=== PATIENT | female | born 1960 | race African-American/Black ===

== ENCOUNTER 2023-06-04 13:43 | Emergency (ER) | payer OTHER, MEDICAID ==
[~2023-06-04] VITALS: Ht 165.1 cm; Wt 98.2 kg
[2023-06-04] MEDS ORDERED: ONDANSETRON HCL 4 MG/2 ML VIAL IV ONE (14:00)
[2023-06-04] MEDS ORDERED: SODIUM CHLORIDE 0.9% 1,000 ML IV ONE (14:00)
[2023-06-04] MEDS ORDERED: hydrALAZINE HCL 20 MG/ML VL IV ONE (14:30)
[2023-06-04 14:34] LABS: Basophils # (auto) 0 10 ^3/uL (0-0.2); Basophils % (auto) 0.8 % (0.0-2.0); Eosinophils # (auto) 0 10 ^3/uL (0-0.8); Eosinophils % (auto) 0.1 % (0.0-7.0); Hematocrit 40.9 % (36.0-46.0); Hemoglobin 13.3 g/dL (12.2-16.2); Lymphocytes # (auto) 0.7 10 ^3/uL (0.4-5.4); Lymphocytes % (auto) 12.8 % (10.0-50.0); Mean Corpuscular Hemoglobin 27.4 pg (28.0-32.0); Mean Corpuscular Hgb Conc. 32.6 g/dL (32.0-36.0); Monocytes # (auto) 0.2 10 ^3/uL (0-1.3); Monocytes % (auto) 4.5 % (0.0-12.0); Neutrophils # (auto) 4.3 10 ^3/uL (1.6-8.6); Neutrophils % (auto) 81.8 % (37.0-80.0); Nucleated Red Blood Cells % 0.2 %; Red Blood Cells 4.87 10^6/uL (4.0-5.20); Red Cell Distribution Width 13.6 % (11.8-14.3); White Blood Cell 5.3 10^3/uL (4.4-10.8)
[2023-06-04 14:55] LABS: Alanine Aminotransferase 24 U/L (7-40); Albumin 4.5 g/dL (3.2-4.8); Alkaline Phosphatase 103 U/L (46-116); Anion Gap 9 (5-15); Aspartate Aminotransferase 13 U/L (13-40); BUN/Creatinine Ratio 16.5 (10.0-20.0); Bilirubin, Total 0.6 mg/dL (0.2-1.0); Blood Urea Nitrogen 15 mg/dL (9-23); Calcium 8.9 mg/dL (8.7-10.4); Carbon Dioxide 26 mmol/L (20-30); Chloride 105 mmol/L (98-107); Glucose 166 mg/dL (74-106); Lipase 33 U/L (12-53); Potassium 3.7 mmol/L (3.5-5.1); Sodium 140 mmol/L (136-145); Total Protein 7.3 g/dL (5.7-8.2)
[2023-06-04 15:16] LABS: Lactic Acid w/Reflex 3.1 mmol/L (0.4-2.0)
[2023-06-04] MEDS ORDERED: IOHEXOL 300 MG/ML 100ML BOTTLE IJ ONE (15:19)
[2023-06-04 15:20] VITALS: TEMP 97.8
[2023-06-04] MEDS ORDERED: LABETALOL HCL 5 MG/ML 4ML SYRINGE IV ONE ×2 (19:45→22:15)
[2023-06-04] MEDS ORDERED: HYDROcodone-ACET 5/325MG TAB PO ONE (19:45)
[2023-06-04] MEDS ORDERED: ZOFR4T PO (19:50)
[2023-06-04 20:51] VITALS: BP 158/78; PULSE 60; RESP 18; O2SAT 100
[2023-06-04 21:38] LABS: Urine Bacteria NONE SEEN /hpf (None Seen); Urine Blood TRACE /uL (Negative); Urine Clarity Clear (Clear); Urine Color Yellow (Yellow); Urine Protein, UAD 1+ (Negative); Urine Urobilinogen Normal (Negative); Urine WBC 1 /hpf (0 - 5); Urine pH 6.5 (5.0-8.0)
[2023-06-04 21:51] LABS: Urine Specific Gravity > 1.050 (1.001-1.035)
== END 2023-06-04 22:58 | disposition home or self-care (01) ==
LOC: EDBD 13:43 → ER 13:43
DX: R10.9 Unspecified abdominal pain (principal); R11.2 Nausea with vomiting, unspecified; I10 Essential (primary) hypertension; E11.9 Type 2 diabetes mellitus without complications; J45.909 Unspecified asthma, uncomplicated; Z98.890 Other specified postprocedural states; Z88.8 Allergy status to other drugs, medicaments and biological substances; Z79.899 Other long term (current) drug therapy
CPT/HCPCS: 36415; 74177; 80053; 81001; 82962; 83605; 83690; 84484; 85025; 96374; 96375; 96376; 99285; J0360; J2405; J3490; Q9967

== ENCOUNTER 2024-10-25 10:40 | Inpatient (IN) | payer OTHER, MEDICAID ==
[~2024-10-25] VITALS: Ht 165.1 cm; Wt 97.2 kg
[~2024-10-25 10:40] MED LIST: ZOFR4T PO
--- NOTE | 2024-10-25 10:52 | ED.PDOC ---
History of Present Illness HPI Comments 63-year-old female who comes in with chief complaint of rapid heart rate consistent with SVT. The patient was at home sitting down in her living room and when the paramedics arrived at her home the patient had a rapid heart rate at around 155. The patient states that she developed the symptoms approximately 15 minutes prior to calling the paramedics. The patient was complaining of some mild shortness for breath. At that time she did state that she has had history of this in the past but was never diagnosed. The paramedics then gave the patient adenosine 6 mg IV push and the heart rate came down to 105. Initially the patient was somewhat hypertensive but after the medication, the patient became more normotensive. The patient was also given Zofran 4 mg for the nausea that she was experiencing. Chief Complaint: Palpitations Time Seen by MD: 10:41 Primary Care Provider: REINALDO Reviewed Notes: Nurses Notes, Tower Foreman Notes, Medications, Allergies (Allergies to penicillin) Allergies: Coded Allergies: Penicillins (Verified Allergy, Unknown, 06/04/23) Home Meds Active Scripts Ondansetron Odt 4MG Tab (ZOFRAN PO) 4 Mg Tb, 4 MG PO Q8HPRN PRN for 3 Days, #9 TAB ODT TAB-DISSOLVE IN MOUTH, THEN SWALLOW Prov:CHARLIE RANDOLPH Lise MILLER 06/04/23 Information Source: Patient, Emergency Med Personnel Mode of Arrival: EMS Severity: Moderate Timing: Minutes Duration: Since onset Prehospital treatment: Industrial Chemist, IVF, Other (4 mg of Zofran. 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 Pertinent HOTEL MAINTENANCE WORKER History Family History Family History: Family hx of DM, Family hx of Cancer, Family hx of heart nelly Social History Smoker: Non-Smoker Alcohol: Denies ETOH Use Drugs: Denies Drug Use Lives In: Home Constitutional: denies: chills, diaphoresis, fatigue, fever, malaise, sweats, weakness, others EENTM: denies: blurred vision, double vision, ear bleeding, ear discharge, ear drainage, ear pain, ear ringing, eye pain, eye redness, hearing loss, mouth pain, mouth swelling, nasal discharge, nose bleeding, nose congestion, nose pain, photophobia, tearing, throat pain, throat swelling, voice changes, others Respiratory: reports: shortness of breath; denies: cough, hemoptysis, orthopnea, SOB at rest, SOB with excertion, stridor, wheezing, others Cardiovascular: reports: palpitations; denies: chest pain, dizzy spells, diaphoresis, Dyspnea on exertion, edema, irregular heart beat, left arm pain, lightheadedness, PND, syncope, others Gastrointestinal: reports: nausea; denies: abdomen distended, abdominal pain, blood streaked bowels, constipated, diarrhea, dysphagia, difficulty swallowing, hematemesis, melena, poor appetite, poor fluid intake, rectal bleeding, rectal pain, vomiting, others Genitourinary: denies: abnormal vagina bleeding, burning, dyspareunia, dysuria, flank pain, frequency, hematuria, incontinence, pain, , vagina dischar ge, urgency, others Neurological: denies: dizziness, fainting, headache, left sided numbness, left sided weakness, numbness, paresthesia, pre-existing deficit, right sided numbness, right sided weakness, seizure, speech problems, tingling, tremors, weakness, others Musculoskeletal: denies: back pain, gout, joint pain, joint swelling, muscle pain, muscle stiffness, neck pain, others Integumetry: denies: bruises, change in color, change in hair/nails, dryness, laceration, lesions, lumps, rash, wounds, others Allergic/Immunocompromised: denies: Difficulty Healing, Frequent Infections, Hives, Itching, others Hematologic/Lymphatic: denies: anemia, blood clots, easy bleeding, easy bruising, swollen glands, others Endocrine: denies: excessive hunger, excessive sweating, excessive thirst, excessive urination, flushing, intolerance to cold, intolerance to heat, unexplained weight gain, unexplained weight loss, others Psychiatric: denies: anxiety, bipolar disorder, depression, hopeless, panic disorder, schizophrenia, sleepless, suicidal, others Physical Exam General Appearance: Mild Distress HEENT: Normal ENT Inspection, Pharynx Normal, TMs Normal Neck: Full Range of Motion, Non-Tender, Normal, Normal Inspection Respiratory: Chest Non-Tender, Lungs Clear, No Accessory Muscle Use, No Respiratory Distress, Normal Breath Sounds Cardiovascular: No Edema, No JVD, No Murmur, No Gallop, Normal Peripheral Pulses, Regular Rate/Rhythm Breast Exam: Deferred Gastrointestinal: No Organomegaly, Non Tender, No Pulsatile Mass, Normal Bowel Sounds, Soft Genitalia: Deferred Pelvic: Deferred Rectal: Deferred Extremities: No calf tenderness, Normal capillary refill, Normal inspection, Normal range of motion, Non-tender, No pedal edema Musculoskeletal : Apperance: Normal Neurologic: Alert, trans router II-XII nml as Tested, No Motor Deficits, Normal Affect, Normal Mood, No Sensory Deficits Cerebellar Function: Normal Reflexes: Normal Skin: Dry, Normal Color, Warm Lymphatic: No Adenopathy Was a procedure done? Was a procedure done?: No EKG EKG : Pulse Rate (adult): 99 Girard: Normal Cardiac Rhythm: NSR ST: Nonsp Differential Dx Considerations may include: SVT, V-tach, VFib X-Ray, Labs, Meds, VS Vital Signs Date Time Temp Pulse Resp B/P (MAP) Pulse Ox O2 Delivery O2 Flow Rate FiO2 10/25/24 12:29 94 20 182/89 10/25/24 12:06 88 10/25/24 11:00 98.4 94 22 192/96 (128) 97 98.4 10/25/24 11:00 Room Air* 0 21 10/25/24 10:59 99 10/25/24 10:52 99 10/25/24 10:43 99.0 101 16 192/142 (159) 100 99.0 Lab Test 10/25/24 11:21 10/25/24 11:18 Range/Units Urine Color Light-yellow Yellow Urine Clarity Clear Clear Urine pH 7.0 5.0-9.0 Urine Specific [place] 1.007 1.001-1.035 Urine Protein 1+ H Negative Urine Ketones Negative Negative Urine Blood Negative Negative /uL Urine Nitrite Negative Negative Urine Bilirubin Negative Negative Urine Urobilinogen Normal Negative mg/dL Urine Leukocyte Esterase Negative Negative /uL Urine RBC 2 0 - 4 /hpf Urine Microscopic WBC 1 0-5 /HPF Urine Squamous Epithelial Cells Few <5 /hpf Urine Bacteria None seen None Seen /hpf Urine Glucose 1+ H Normal mg/dL White Blood Count 4.4 4.4-10.8 10^3/uL Red Blood Count 4.92 4.0-5.20 10^6/uL Hemoglobin 13.3 12.2-16.2 g/dL Hematocrit 41.1 36.0-46.0 % Mean Corpuscular Volume 83.4 80.0-100.0 fL Mean Corpuscular Hemoglobin 27.1 L 28.0-32.0 pg Mean Corpuscular Hemoglobin Concent 32.5 32.0-36.0 g/dL Red Cell Distribution Width 14.1 11.8-14.3 % Platelet Count 284 140-450 10^3/uL Mean Platelet Volume 8.3 6.9-10.8 fL Neutrophils (%) (Auto) 65.9 37.0-80.0 % Lymphocytes (%) (Auto) 24.5 10.0-50.0 % Monocytes (%) (Auto) 7.8 0.0-12.0 % Eosinophils (%) (Auto) 1.3 0.0-7.0 % Basophils (%) (Auto) 0.5 0.0-2.0 % Neutrophils # (Auto) 2.9 1.6-8.6 10 ^3/uL Lymphocytes # (Auto) 1.1 0.4-5.4 10 ^3/uL Monocytes # (Auto) 0.3 0-1.3 10 ^3/uL Eosinophils # (Auto) 0.1 0-0.8 10 ^3/uL Basophils # (Auto) 0 0-0.2 10 ^3/uL Nucleated Red Blood Cells 0.1 % Sodium Level 140 136-145 mmol/L Potassium Level 3.4 L 3.5-5.1 mmol/L Chloride Level 107 98-107 mmol/L Carbon Dioxide Level 26 20-31 mmol/L Anion Gap 7 5-15 Blood Urea Nitrogen 11 9-23 mg/dL Creatinine 0.91 0.550-1.02 mg/dL Glomerular Filtration Rate Calc 72 >90 mL/min BUN/Creatinine Ratio 12.1 10.0-20.0 Serum Glucose 166 H 74-106 mg/dL Calcium Level 9.4 8.7-10.4 mg/dL Magnesium Level 1.9 1.6-2.6 mg/dL Troponin I High Sensitivity 13 </=34 ng/L Current Medications Medications (Trade) Dose Ordered Sig/Jayla Route Start Time Stop Time Status Last Admin Morphine Sulfate 4 mg ONCE ONCE IV 10/25/24 12:30 10/25/24 12:31 DC 10/25/24 12:29 Ondansetron HCl (Zofran) 4 mg ONCE ONCE IV 10/25/24 12:30 10/25/24 12:31 DC 10/25/24 12:27 CHEST RADIOGRAPH IMPRESSION: No evidence of acute cardiopulmonary disease. IV Hep-Lock was established The patient was placed on a delivery manager and pulse oximeter. The patient has remained in normal sinus rhythm here in the emergency department's The patient was having some headache so was given morphine 4 mg IV push The patient was also given Zofran 4 mg IV push The patient's troponin level is negative At this time, the patient's CBC, chemistry panel and magnesium are within normal limits At this time the patient is discharged and will follow up with the primary care doctor The patient will return to the emergency department's the condition worsens The patient did share that they are considering doing an ablation on her at some point Images Reviewed?: Images reviewed and evaluated by me Time of 1ST Reevaluation: 10:59 Reevaluation 1ST: Improved Patient Education/Counseling: Diagnosis, Treatment, Prognosis, Need For Follow Up Family Education/Counseling: No Family Present Departure 1 Departure Time of Disposition: 12:33 Impression: Primary Impression: SVT (supraventricular tachycardia) Disposition: 01 HOME / SELF CARE / HOMELESS Condition: Fair Discharged With: Self Critical Care Note Critical Care Time?: No Stability Stability form required: No Heart Score Heart Score: Heart Score Response (Comments) Value History N/A 0 EKG N/A 0 Age N/A 0 Risk Factors N/A 0 Troponin N/A 0 Total 0 I personally scribed for GWEN CAPONE MD ([email or web address]) on 10/25/24 at 12:23. Electronically submitted by Gage Solano ([email or web address]). GWEN CAPONE MD Oct 25, 2024 10:52
--- NOTE | 2024-10-25 11:43 | ECG ---
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
[2024-10-25 11:46] LABS: Basophils # (auto) 0 10 ^3/uL (0-0.2); Basophils % (auto) 0.5 % (0.0-2.0); Eosinophils # (auto) 0.1 10 ^3/uL (0-0.8); Eosinophils % (auto) 1.3 % (0.0-7.0); Hematocrit 41.1 % (36.0-46.0); Hemoglobin 13.3 g/dL (12.2-16.2); Lymphocytes # (auto) 1.1 10 ^3/uL (0.4-5.4); Lymphocytes % (auto) 24.5 % (10.0-50.0); Mean Corpuscular Hemoglobin 27.1 pg (28.0-32.0); Mean Corpuscular Hgb Conc. 32.5 g/dL (32.0-36.0); Mean Corpuscular Volume 83.4 fL (80.0-100.0); Monocytes # (auto) 0.3 10 ^3/uL (0-1.3); Monocytes % (auto) 7.8 % (0.0-12.0); Neutrophils # (auto) 2.9 10 ^3/uL (1.6-8.6); Neutrophils % (auto) 65.9 % (37.0-80.0); Nucleated Red Blood Cells % 0.1 %; Platelet Count (auto) 284 10^3/uL (140-450); Red Blood Cells 4.92 10^6/uL (4.0-5.20); Red Cell Distribution Width 14.1 % (11.8-14.3); White Blood Cell 4.4 10^3/uL (4.4-10.8)
[2024-10-25 11:55] LABS: Sodium 140 mmol/L (136-145)
[2024-10-25 11:56] LABS: Anion Gap 7 (5-15); Calcium 9.4 mg/dL (8.7-10.4); Carbon Dioxide 26 mmol/L (20-31)
[2024-10-25 12:01] LABS: BUN/Creatinine Ratio 12.1 (10.0-20.0); Blood Urea Nitrogen 11 mg/dL (9-23)
[2024-10-25 12:02] LABS: Magnesium 1.9 mg/dL (1.6-2.6)
[2024-10-25 12:08] LABS: Chloride 107 mmol/L (98-107); Glucose 166 mg/dL (74-106); Potassium 3.4 mmol/L (3.5-5.1)
--- NOTE | 2024-10-25 12:08 | DVH ---
CHEST RADIOGRAPH Indication: Palpitations Technique: Single frontal view of the chest was obtained COMPARISON: None FINDINGS: Lines and Tubes: None Lungs: Clear Pleura: No effusion. No pneumothorax. Cardiomediastinal contours: Unremarkable. Mild elevation of the left hemidiaphragm. Bones: Unremarkable IMPRESSION: No evidence of acute cardiopulmonary disease.
--- NOTE | 2024-10-25 12:08 | ECG ---
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
[2024-10-25 12:18] LABS: Urine Bacteria None Seen /hpf (None Seen)
[2024-10-25] MEDS: ONDANSETRON HCL 4 MG/2 ML VIAL IV ONE (12:27)
[2024-10-25] MEDS: MORPHINE SULFATE 4 MG/ML SYR/VIAL IV ONE (12:29)
[2024-10-25 12:30] LABS: Urine Blood Negative /uL (Negative); Urine Protein, UAD 1+ (Negative); Urine Specific Gravity 1.007 (1.001-1.035); Urine Squamous Epithelial Cell FEW /hpf (<5); Urine Urobilinogen Normal (Negative); Urine WBC 1 /HPF (0-5)
[2024-10-25 12:31] LABS: Urine Clarity Clear (Clear); Urine Color Light-Yellow (Yellow)
[2024-10-25] MEDS: HYDROcodone-ACET 5/325MG TAB PO ONE (15:00)
[2024-10-25] MEDS: cloNIDine HCL 0.1 MG TAB PO ONE (15:06)
[2024-10-25] MEDS ORDERED: NITROGLYCERIN 0.4 MG SL TAB SL PRN (19:00)
[2024-10-25] MEDS ORDERED: LORazepam 0.5 MG TAB PO PRN (19:00)
[2024-10-25] MEDS: METOPROLOL TARTRATE 1MG/1ML-5ML VIAL IV ONE (19:08)
--- NOTE | 2024-10-25 19:24 | DVHHP2 ---
History of Present Illness Reason for Visit: chest pain heart rate History of Present Illness 63-year-old female [place] patient came in for evaluation of chest pain and suspected SVT initially patient was evaluated in the ED after being brought in by the paramedics with high heart rate patient was started and treated in the ED with adenosine at that point in time patient's blood pressure and heart rate became more normotensive and better controlled however continued to have chest pain and nausea and vomiting was recommended for admission to inpatient telemetry Cardiovascular: HTN Endocrine: Diabetes Past Surgical History: Hysterectomy Family History: Cancer, DM, Hypertension Review of Systems Review of Systems ROS: Constitutional: denies: chills, diaphoresis, fatigue, fever, malaise, sweats, weakness, others EENTM: denies: blurred vision, double vision, ear bleeding, ear discharge, ear drainage, ear pain, ear ringing, eye pain, eye redness, hearing loss, mouth pain, mouth swelling, nasal discharge, nose bleeding, nose congestion, nose pain, photophobia, tearing, throat pain, throat swelling, voice changes, others Respiratory: reports: shortness of breath; denies: cough, hemoptysis, orthopnea, SOB at rest, SOB with excertion, stridor, wheezing, others Cardiovascular: reports: palpitations; denies: chest pain, dizzy spells, diaphoresis, Dyspnea on exertion, edema, irregular heart beat, left arm pain, lightheadedness, PND, syncope, others Gastrointestinal: reports: nausea; denies: abdomen distended, abdominal pain, blood streaked bowels, constipated, diarrhea, dysphagia, difficulty swallowing, hematemesis, melena, poor appetite, poor fluid intake, rectal bleeding, rectal pain, vomiting, others Genitourinary: denies: abnormal vagina bleeding, burning, dyspareunia, dysuria, flank pain, frequency, hematuria, incontinence, pain, , vagina discharge, urgency, others Neurological: denies: dizziness, fainting, headache, left sided numbness, left sided weakness, numbness, paresthesia, pre-existing deficit, right sided numbness, right sided weakness, seizure, speech problems, tingling, tremors, weakness, others Musculoskeletal: denies: back pain, gout, joint pain, joint swelling, muscle pain, muscle stiffness, neck pain, others Integumetry: denies: bruises, change in color, change in hair/nails, dryness, laceration, lesions, lumps, rash, wounds, others Allergic/Immunocompromised: denies: Difficulty Healing, Frequent Infections, Hives, Itching, others Hematologic/Lymphatic: denies: anemia, blood clots, easy bleeding, easy bruising, swollen glands, others Endocrine: denies: excessive hunger, excessive sweating, excessive thirst, excessive urination, flushing, intolerance to cold, intolerance to heat, unexplained weight gain, unexplained weight loss, others Psychiatric: denies: anxiety, bipolar disorder, depression, hopeless, panic disorder, schizophrenia, sleepless, suicidal, others Allergies: Coded Allergies: Penicillins (Verified Allergy, Unknown, 06/04/23) Medications Current Medications Medications Dose Ordered Sig/Jayla Route Start Time Stop Time Status Last Admin Dose Admin Aspirin 81 mg DAILY PO 10/26/24 10:00 Carvedilol 6.25 mg Q12HR PO 10/25/24 22:00 Losartan Potassium 25 mg DAILY PO 10/26/24 10:00 Acetaminophen 650 mg Q6HP PRN PO 10/25/24 19:00 Lorazepam 0.5 mg Q6HP PRN PO 10/25/24 19:00 Docusate Sodium 100 mg DAILY PO 10/26/24 10:00 Nitroglycerin 0.4 mg Q5MINP PRN SL 10/25/24 19:00 Ondansetron HCl 4 mg Q4HP PRN IV 10/25/24 19:00 Diagnostic Test (Pha) 1 strip ACHS 10/25/24 22:00 UNV Insulin Human Regular ACHS SC 10/25/24 22:00 UNV Dextrose 50 ml UD PRN IV 10/25/24 19:30 UNV Clonidine HCl 0.1 mg Q6HP PRN PO 10/25/24 19:30 UNV Exam Vital Signs Vital Signs Date Time Temp Pulse Resp B/P (MAP) Pulse Ox O2 Delivery O2 Flow Rate FiO2 10/25/24 19:08 74 170/85 10/25/24 18:00 21 95 10/25/24 11:00 98.4 98.4 10/25/24 11:00 Room Air* 0 21 Exam PE: General Appearance: Mild Distress HEENT: Normal ENT Inspection, Pharynx Normal, TMs Normal Neck: Full Range of Motion, Non-Tender, Normal, Normal Inspection Respiratory: Chest Non-Tender, Lungs Clear, No Accessory Muscle Use, No Respiratory Distress, Normal Breath Sounds Cardiovascular: No Edema, No JVD, No Murmur, No Gallop, Normal Peripheral Pulses, Regular Rate/Rhythm Breast Exam: Deferred Gastrointestinal: No Organomegaly, Non Tender, No Pulsatile Mass, Normal Bowel Sounds, Soft Genitalia: Deferred Pelvic: Deferred Rectal: Deferred Extremities: No calf tenderness, Normal capillary refill, Normal inspection, Normal range of motion, Non-tender, No pedal edema Musculoskeletal : Apperance: Normal Neurologic: Alert, apprentice lineman third step II-XII nml as Tested, No Motor Deficits, Normal Affect, Normal Mood, No Sensory Deficits Cerebellar Function: Normal Reflexes: Normal Skin: Dry, Normal Color, Warm Lymphatic: No Adenopathy Labs/Xrays Labs Test 10/25/24 19:12 10/25/24 11:21 10/25/24 11:18 Range/Units Urine Color Light-yellow Yellow Urine Clarity Clear Clear Urine pH 7.0 5.0-9.0 Urine Specific [place] 1.007 1.001-1.035 Urine Protein 1+ H Negative Urine Ketones Negative Negative Urine Blood Negative Negative /uL Urine Nitrite Negative Negative Urine Bilirubin Negative Negative Urine Urobilinogen Normal Negative mg/dL Urine Leukocyte Esterase Negative Negative /uL Urine RBC 2 0 - 4 /hpf Urine Microscopic WBC 1 0-5 /HPF Urine Squamous Epithelial Cells Few <5 /hpf Urine Bacteria None seen None Seen /hpf Urine Glucose 1+ H Normal mg/dL White Blood Count 4.4 4.4-10.8 10^3/uL Red Blood Count 4.92 4.0-5.20 10^6/uL Hemoglobin 13.3 12.2-16.2 g/dL Hematocrit 41.1 36.0-46.0 % Mean Corpuscular Volume 83.4 80.0-100.0 fL Mean Corpuscular Hemoglobin 27.1 L 28.0-32.0 pg Mean Corpuscular Hemoglobin Concent 32.5 32.0-36.0 g/dL Red Cell Distribution Width 14.1 11.8-14.3 % Platelet Count 284 140-450 10^3/uL Mean Platelet Volume 8.3 6.9-10.8 fL Neutrophils (%) (Auto) 65.9 37.0-80.0 % Lymphocytes (%) (Auto) 24.5 10.0-50.0 % Monocytes (%) (Auto) 7.8 0.0-12.0 % Eosinophils (%) (Auto) 1.3 0.0-7.0 % Basophils (%) (Auto) 0.5 0.0-2.0 % Neutrophils # (Auto) 2.9 1.6-8.6 10 ^3/uL Lymphocytes # (Auto) 1.1 0.4-5.4 10 ^3/uL Monocytes # (Auto) 0.3 0-1.3 10 ^3/uL Eosinophils # (Auto) 0.1 0-0.8 10 ^3/uL Basophils # (Auto) 0 0-0.2 10 ^3/uL Nucleated Red Blood Cells 0.1 % Sodium Level 140 136-145 mmol/L Potassium Level 3.4 L 3.5-5.1 mmol/L Chloride Level 107 98-107 mmol/L Carbon Dioxide Level 26 20-31 mmol/L Anion Gap 7 5-15 Blood Urea Nitrogen 11 9-23 mg/dL Creatinine 0.91 0.550-1.02 mg/dL Glomerular Filtration Rate Calc 72 >90 mL/min BUN/Creatinine Ratio 12.1 10.0-20.0 Serum Glucose 166 H 74-106 mg/dL Calcium Level 9.4 8.7-10.4 mg/dL Magnesium Level 1.9 1.6-2.6 mg/dL Assessment/Plan Assessment/Plan admit to telemetry SVT with stated chest pain Chest pain protocol Monitor on telemetry floor Initial troponins negative Borderline potassium Rest of the labs unremarkable History of diabetes type 2 Mildly elevated glucose Maintain and follow a glucose controlled diet Insulin sliding scale while inpatient history of hypertension Patient placed on clonidine 0.2 mg while in the ED We will maintain 0.1 prn medication for now to avoid rebound Plan discussed with: Patient My Orders Orders - AMARILYS QURESHI MD Procedure Category Date Status Time Admit ADMIT 10/25/24 Transmitted 18:56 Code Status CODE 10/25/24 Transmitted 18:56 Vital Signs JULIAN 10/25/24 In Process 18:56 Rn Forensic JULIAN 10/25/24 In Process 18:56 Cardiac DIET 10/26/24 Transmitted Diet-2gna,Lofat,Lochol Breakfast Aspirin Tablet PHA 10/26/24 In Process 10:00 Carvedilol Tablet PHA 10/25/24 In Process (Coreg Tablet) 22:00 Losartan Tablet PHA 10/26/24 In Process (Cozaar Tablet) 10:00 Acetaminophen Tablet PHA 10/25/24 In Process (Tylenol Tablet) 19:00 Lorazepam Tablet PHA 10/25/24 In Process (Ativan Tablet) 19:00 Docusate Sodium PHA 10/26/24 In Process Capsule (Colace 10:00 Complete Blood Count LAB 10/26/24 Verified 04:00 Basic Metabolic Panel LAB 10/26/24 Verified 04:00 Magnesium LAB 10/26/24 Verified 04:00 Nitroglycerin PHA 10/25/24 In Process Sublingual (Ntrostat 19:00 Ondansetron Hcl PHA 10/25/24 In Process (Zofran) 19:00 Electrocardigram EKG 10/25/24 Logged 18:56 Troponin-I Hs LAB 10/25/24 In Process 18:56 Cardiac JULIAN 10/25/24 In Process Rehabilitation - Outpa Notify Md Of Changes [facility] 10/25/24 In Process From Base 18:56 Race Car Driver [address] [facility] 10/25/24 In Process 24 Hours 18:[address] [facility] 10/25/24 In Process Protocol 18:56 Rhythm Strips Once [facility] 10/25/24 In Process Every Shift 18:56 Oxygen By Nasal RT 10/25/24 Transmitted Cannula 18:56 Troponin-I Hs LAB 10/25/24 Logged 19:56 Troponin-I Hs LAB 10/25/24 Logged 21:56 Glucose Blood PHA 10/25/24 Logged (Accu-Chek Comfort 22:00 Insulin R (Human) PHA 10/25/24 Logged (Insulin R) 22:00 Dextrose 50% Syringe PHA 10/25/24 Logged 19:30 Clonidine Hcl Tablet PHA 10/25/24 Logged (Catapres Tablet) 19:30 Date of Service: Oct 25, 2024 Billing Provider: AMARILYS QURESHI MD Common Visit Codes: [id number] INP/OBS CARE (HIGH) AMARILYS QURESHI MD Oct 25, 2024 19:24
[2024-10-25] MEDS ORDERED: DEXTROSE (50%) 50ML SYRG IV PRN (19:30)
[2024-10-25] MEDS ORDERED: cloNIDine HCL 0.1 MG TAB PO PRN (19:30)
[2024-10-25 19:44] VITALS: PULSE 60; RESP 12; O2SAT 96
[2024-10-25] MEDS: cloNIDine HCL 0.1 MG TAB PO PRN (20:38)
[2024-10-25 21:36] VITALS: BP 175/80; PULSE 60; RESP 20; TEMP 97.8; O2SAT 95
[2024-10-25 21:55] VITALS: BP 175/80; PULSE 60; RESP 20; TEMP 97.8; O2SAT 95
[2024-10-25] MEDS: InsuLIN REG 1unit/0.01ml Soln (100units/ml) SC SCH (22:45)
[2024-10-25] MEDS: ACCU-CHEK COMFORT CURVE STRIP VI SCH (22:45)
[2024-10-26] VITALS (8 sets, daily range): BP systolic 108–150; BP diastolic 70–84; PULSE 54–76; RESP 16–18; TEMP 96.5–98.4; O2SAT 92–98
[2024-10-26] MEDS: CARVEDILOL 3.125 MG TAB PO SCH ×2 (00:32→21:40)
[2024-10-26] MEDS: ONDANSETRON HCL 4 MG/2 ML VIAL IV PRN (00:36)
[2024-10-26 06:17] LABS: Basophils # (auto) 0 10 ^3/uL (0-0.2); Basophils % (auto) 0.5 % (0.0-2.0); Eosinophils # (auto) 0 10 ^3/uL (0-0.8); Hematocrit 39.1 % (36.0-46.0); Hemoglobin 12.9 g/dL (12.2-16.2); Lymphocytes # (auto) 1.1 10 ^3/uL (0.4-5.4); Lymphocytes % (auto) 23.8 % (10.0-50.0); Mean Corpuscular Hemoglobin 27.2 pg (28.0-32.0); Mean Corpuscular Hgb Conc. 32.9 g/dL (32.0-36.0); Mean Corpuscular Volume 82.4 fL (80.0-100.0); Monocytes # (auto) 0.5 10 ^3/uL (0-1.3); Monocytes % (auto) 10.5 % (0.0-12.0); Neutrophils % (auto) 64.2 % (37.0-80.0); Platelet Count (auto) 302 10^3/uL (140-450); Red Blood Cells 4.74 10^6/uL (4.0-5.20); Red Cell Distribution Width 13.9 % (11.8-14.3); White Blood Cell 4.7 10^3/uL (4.4-10.8)
[2024-10-26 06:30] LABS: Anion Gap 9 (5-15); Calcium 9.1 mg/dL (8.7-10.4); Carbon Dioxide 27 mmol/L (20-31); Chloride 105 mmol/L (98-107); Sodium 141 mmol/L (136-145)
[2024-10-26 06:33] LABS: Potassium 3.4 mmol/L (3.5-5.1)
[2024-10-26 06:36] LABS: BUN/Creatinine Ratio 15.2 (10.0-20.0); Blood Urea Nitrogen 15 mg/dL (9-23)
[2024-10-26 06:37] LABS: Magnesium 2.1 mg/dL (1.6-2.6)
[2024-10-26 06:45] LABS: Glucose 138 mg/dL (74-106)
--- NOTE | 2024-10-26 10:44 | DVHPN2 ---
Progress Note Date Seen: Oct 26, 2024 Medical Necessity Reason Pt with a Central, PICC or Fol: No Subjective Patient reports: No new complaints Review of Systems: HEENT:Normal, CVS:Normal, RESPIRATORY:Normal, GI:Normal, :Normal, MSK:Normal, NEURO:Normal Objective vital signs Vital Sign Date Time Temp Pulse Resp B/P (MAP) Pulse Ox O2 Delivery O2 Flow Rate FiO2 10/26/24 09:07 98.3 55 16 108/73 (85) 98 98.3 10/25/24 21:55 Room Air* 0 21 Total Intake and Output 10/25/24 10/25/24 10/26/24 15:00 23:00 07:00 Intake Total 400 ml Output Total 500 ml 100 ml Balance -500 ml 300 ml medications Current Medications Medications Dose Ordered Sig/Jayla Route Start Time Stop Time Status Last Admin Dose Admin Aspirin 81 mg DAILY PO 10/26/24 10:00 Carvedilol 6.25 mg Q12HR PO 10/25/24 22:00 Losartan Potassium 25 mg DAILY PO 10/26/24 10:00 Acetaminophen 650 mg Q6HP PRN PO 10/25/24 19:00 Lorazepam 0.5 mg Q6HP PRN PO 10/25/24 19:00 Docusate Sodium 100 mg DAILY PO 10/26/24 10:00 Nitroglycerin 0.4 mg Q5MINP PRN SL 10/25/24 19:00 Ondansetron HCl 4 mg Q4HP PRN IV 10/25/24 19:00 10/26/24 00:36 4 MG Diagnostic Test (Pha) 1 strip ACHS 10/25/24 22:00 10/26/24 06:04 1 STRIP Insulin Human Regular ACHS SC 10/25/24 22:00 10/26/24 06:04 2 UNITS Dextrose 50 ml UD PRN IV 10/25/24 19:30 Clonidine HCl 0.2 mg Q6HP PRN PO 10/25/24 20:30 10/25/24 20:38 0.2 MG Examination: GENERAL:Normal, HEENT:Normal, NECK:Normal, LUNGS:Normal, CVS:Normal, ABDOMEN:Normal, MSK:Normal, SKIN:Normal, NEURO:Normal, :Normal laboratory and microbiology Laboratory Tests 10/26/24 05:50 Test 10/26/24 05:50 Range/Units Serum Glucose 138 H 74-106 mg/dL Problem List/Assessment/Plan Problem List/Assessment/Plan #1 hypertensive ?emergency: cont meds #2 svt: cardio eval #3 abd pain/vomiting: iv ppi, ivf #4 obesity #5 dm: ssi unstable for transfer advance care planning- full code- time spent 19 mins Plan discussed with: Patient My Orders My Orders Orders - BONI CHEN MD Procedure Category Date Status Time Carvedilol Tablet PHA 10/26/24 Verified (Coreg Tablet) 22:00 * Cardiology Consult CONS 10/26/24 Verified 10:37 Echo 2d Mode Cardiac US 10/26/24 Verified DOP 10:37 Potassium Chl Simon PHA 10/26/24 Verified KCL 10:45 Pantoprazole PHA 10/26/24 Verified (Protonix) 10:45 Pantoprazole PHA 10/27/24 Verified (Protonix) 10:00 NS PHA 10/26/24 Verified 10:45 Clonidine Hcl Tablet PHA 10/26/24 Verified (Catapres Tablet) 10:45 Complete Blood Count LAB 10/27/24 Verified 06:00 Comprehensive LAB 10/27/24 Verified Metabolic Panel 06:00 PTPTT LAB 10/27/24 Verified 04:00 Thyroid Stimulating LAB 10/27/24 Verified Hormone 05:00 Hemoglobin A1c LAB 10/27/24 Verified 06:00 Date of Service: Oct 26, 2024 Billing Provider: BONI CHEN MD Common Visit Codes: [id number] INP/OBS CARE(HIGH) Secondary Visit Codes: [id number] CARE PLAN 30 MINUTES BONI CHEN MD Oct 26, 2024 10:44
[2024-10-26] MEDS: DOCUSATE SOD 100 MG CAP PO SCH (10:46)
[2024-10-26] MEDS: ASPirin 81 mg TAB PO SCH (10:46)
[2024-10-26] MEDS: LOSARTAN POTASSIUM 25 MG TAB PO SCH (10:47)
[2024-10-26] MEDS: ACETAMINOPHEN 325 MG TAB PO PRN (10:52)
--- NOTE | 2024-10-26 13:05 | DVHINCON2 ---
Date Seen: Oct 26, 2024 Referring Physician MD Kvng Reason for Consultation ?SVT History of Present Illness This is a 63-year-old female who presented to the emergency room via EMS with a chief complaint of palpitations. The patient reports she stood up from her bed to use the bathroom when "my stomach felt sick" associated with nausea, heart palpitations, and mild SOB. She took zofran as it has been Rx in the past for multiple events of nauseas and called 911. Per records, she was found with a HR at 155 bpm for which she was given adenosine 6 mg IV x 1 (there was no EMS cardiac strip on file to determine rhythm). Multiple 12 lead electrocardiograms x2 revealed a normal sinus rhythm. Serial troponin levels are negative. At time of assessment, she denied any further cardiac symptoms. C/o JOHNSON and nausea. SBP found to be up to 205 mmHg. Per patient, she is on multiple antihypertensive agents including a clonidine patch she is wearing at this time. Significant medical history includes hypertension, [id number]-[id number] diabetes mellitus, GERD, and obesity. Past Medical History Past medical history reviewed. No other significant than mentioned above. Past Surgical History Hysterectomy Family History: Asthma G8 MOTHER Chronic obstructive pulmonary disease G8 MOTHER Diabetes mellitus G8 MOTHER Family History Family history reviewed. Social History Denies the use of illicit drugs, alcohol, or tobacco use. Allergies: Coded Allergies: Penicillins (Verified Allergy, Unknown, 06/04/23) Home Meds Active Scripts Ondansetron Odt 4MG Tab (ZOFRAN PO) 4 Mg Tb, 4 MG PO Q8HPRN PRN for 3 Days, #9 TAB ODT TAB-DISSOLVE IN MOUTH, THEN SWALLOW Prov:CHARLIE RANDOLPH DO 06/04/23 Home Meds Home medications reviewed. Current Medications Current Medications Medications (Trade) Dose Ordered Sig/Jayla Route PRN Reason Start Time Stop Time Status Last Admin Aspirin 81 mg DAILY PO 10/26/24 10:00 10/26/24 10:46 Carvedilol (Coreg Tablet) 6.25 mg Q12HR PO 10/25/24 22:00 10/26/24 10:43 DC Losartan Potassium (Cozaar Tablet) 25 mg DAILY PO 10/26/24 10:00 10/26/24 10:47 Acetaminophen (Tylenol Tablet) 650 mg Q6HP PRN PO MILD PAIN (1-3 PAIN SCALE) 10/25/24 19:00 10/26/24 10:52 Lorazepam (Ativan Tablet) 0.5 mg Q6HP PRN PO ANXIETY 10/25/24 19:00 Docusate Sodium (Colace Capsule) 100 mg DAILY PO 10/26/24 10:00 10/26/24 10:46 Nitroglycerin (Ntrostat Sublingual) 0.4 mg Q5MINP PRN SL FOR CHEST PAIN 10/25/24 19:00 Ondansetron HCl (Zofran) 4 mg Q4HP PRN IV NAUSEA / VOMITING 10/25/24 19:00 10/26/24 11:20 Diagnostic Test (Pha) (Accu-Chek Comfort Curve T) 1 strip ACHS 10/25/24 22:00 10/26/24 11:35 Insulin Human Regular (InsuLIN R) ACHS SC 10/25/24 22:00 10/26/24 11:35 Dextrose 50 ml UD PRN IV Blood Sugar LESS THAN 60 10/25/24 19:30 Clonidine HCl (Catapres Tablet) 0.1 mg Q6HP PRN PO SBP>180 10/25/24 19:30 10/25/24 20:28 DC Clonidine HCl (Catapres Tablet) 0.2 mg Q6HP PRN PO SBP>160 10/25/24 20:30 10/26/24 10:43 DC 10/25/24 20:38 Carvedilol (Coreg Tablet) 3.125 mg Q12HR PO 10/26/24 22:00 Pantoprazole Sodium (Protonix) 40 mg DAILY IV 10/27/24 10:00 Sodium Chloride 1,000 ml @ 60 mls/hr [id number] IV 10/26/24 10:45 Clonidine HCl (Catapres Tablet) 0.1 mg Q6HP PRN PO SBP>160 10/26/24 10:45 Review of Systems Constitutional: No symptom reported Ears, Nose, & Throat: No symptom reported Eyes: No symptom reported Neurological: JOHNSON Pulmonary/Respiratory: Mild SOB Cardiovascular: Palpitations Gastrointestinal: Nausea Genitourinary: No symptom reported Musculoskeletal: No symptom reported Skin: No symptom reported Psychiatric: No symptom reported Endocrine: No symptom reported Hemotologic/Lymphatic: No symptom reported Vital Signs Vital Signs Date Time Temp Pulse Resp B/P (MAP) Pulse Ox O2 Delivery O2 Flow Rate FiO2 10/26/24 10:47 151/86 10/26/24 09:07 98.3 55 16 98 98.3 10/26/24 08:00 Room Air* 0 21 Physical Exam General Appearance: Cooperative. Well developed. Obese. In no acute distress Head Exam: Normal inspection Neck Exam: Normal inspection. Non-tender. Normal alignment Pulmonary/Respiratory: Chest non-tender. Clear bilateral breath sounds Cardiovascular/Chest: Regular rate and rhythm. S1, S2. NSR. No murmurs. No JVD. Peripheral Pulses: 2+ Radial (R). 2+ Radial (L). 2+ Pedal (R). 2+ Pedal (L) Abdominal Exam: Normal bowel sounds. Soft. Ankle Exam: Negative ankle edema Lower extremities: Negative lower extremity edema Neuro/Mental Status: A&O x4. Coherent Thoughts/Psych: Normal thought pattern. Appropriate mood and affect. Good judgement and insight Appearance: In no acute distress Skin Exam: Normal inspection. Normal color. Warm. Dry Labs/Diagnostic Data Labs Test 10/26/24 11:29 10/26/24 05:50 10/25/24 22:21 10/25/24 11:21 Range/Units POC Glucose 175 H 70-106 mg/dl White Blood Count 4.7 4.4-10.8 10^3/uL Red Blood Count 4.74 4.0-5.20 10^6/uL Hemoglobin 12.9 12.2-16.2 g/dL Hematocrit 39.1 36.0-46.0 % Mean Corpuscular Volume 82.4 80.0-100.0 fL Mean Corpuscular Hemoglobin 27.2 L 28.0-32.0 pg Mean Corpuscular Hemoglobin Concent 32.9 32.0-36.0 g/dL Red Cell Distribution Width 13.9 11.8-14.3 % Platelet Count 302 140-450 10^3/uL Mean Platelet Volume 8.4 6.9-10.8 fL Neutrophils (%) (Auto) 64.2 37.0-80.0 % Lymphocytes (%) (Auto) 23.8 10.0-50.0 % Monocytes (%) (Auto) 10.5 0.0-12.0 % Eosinophils (%) (Auto) 1.0 0.0-7.0 % Basophils (%) (Auto) 0.5 0.0-2.0 % Neutrophils # (Auto) 3.0 1.6-8.6 10 ^3/uL Lymphocytes # (Auto) 1.1 0.4-5.4 10 ^3/uL Monocytes # (Auto) 0.5 0-1.3 10 ^3/uL Eosinophils # (Auto) 0 0-0.8 10 ^3/uL Basophils # (Auto) 0 0-0.2 10 ^3/uL Nucleated Red Blood Cells 0.0 % Sodium Level 141 136-145 mmol/L Potassium Level 3.4 L 3.5-5.1 mmol/L Chloride Level 105 98-107 mmol/L Carbon Dioxide Level 27 20-31 mmol/L Anion Gap 9 5-15 Blood Urea Nitrogen 15 9-23 mg/dL Creatinine 0.99 0.550-1.02 mg/dL Glomerular Filtration Rate Calc 65 >90 mL/min BUN/Creatinine Ratio 15.2 10.0-20.0 Serum Glucose 138 H 74-106 mg/dL Calcium Level 9.1 8.7-10.4 mg/dL Magnesium Level 2.1 1.6-2.6 mg/dL Troponin I High Sensitivity 29 </=34 ng/L Urine Color Light-yellow Yellow Urine Clarity Clear Clear Urine pH 7.0 5.0-9.0 Urine Specific [place] 1.007 1.001-1.035 Urine Protein 1+ H Negative Urine Ketones Negative Negative Urine Blood Negative Negative /uL Urine Nitrite Negative Negative Urine Bilirubin Negative Negative Urine Urobilinogen Normal Negative mg/dL Urine Leukocyte Esterase Negative Negative /uL Urine RBC 2 0 - 4 /hpf Urine Microscopic WBC 1 0-5 /HPF Urine Squamous Epithelial Cells Few <5 /hpf Urine Bacteria None seen None Seen /hpf Urine Glucose 1+ H Normal mg/dL Assessment Hypertensive emergency Questionable SVT event Rule out structural heart disease Rule out primary hyperaldosteronism Gsp-gyhsite-ujbnxdxvc diabetes mellitus Obesity Plan/Recommendation (Dr. Gomes) Scheduled for a transthoracic echocardiogram to rule out structural heart dise ase as well as aldosterone/renin ratio to rule out primary hyperaldosteronism. Continue aggressive blood pressure control and up-titrate medications for a target SBP <140 mmHg. We recommend an outpatient event monitor to rule out cardiac arrhythmias. Continue beta-kinza. Replete electrolytes as necessary. TSH level pending. Monitor ECG changes closely and notify. Thank you for allowing us to participate in this patient's care. Please call if you have any questions or concerns. This medical document was created using an electronic medical record system with voice recognition software and computerized dictation system. Although this document has been carefully reviewed, there might still be some phonetic and typographical errors. Occasional wrong-word or ``sound-alike substitutions may have occurred due to the inherent limitations of voice recognition software. These areas are purely typographical due to imperfections of the software programs and do not reflect any compromise in the patient's medical care. Please read the chart carefully and recognize, using context, where these substitutions have occurred. Plan discussed with: Patient, Other NYHA Physical activity limitations: NA Date of Service: Oct 26, 2024 Billing Provider: MAMI FARRELL Cardiology Common Codes: [id number] INP/OBS CARE (High) MAMI FARRELL Oct 26, 2024 13:05
[2024-10-26] MEDS: SODIUM CHLORIDE 0.9% 1,000 ML IV SCH (13:29)
[2024-10-26] MEDS: PANTOPRAZOLE 40 MG/10 ML VIAL INJ IV ONE (13:29)
[2024-10-26] MEDS: POTASSIUM CHLORIDE 20 MEQ, LIDOCAINE 1% (LOCAL ANESTH.) 2 ML in SODIUM CHL 0.9% 100 ML IV ONE (14:15)
--- NOTE | 2024-10-26 16:08 | DVHSR ---
APPROVED REPORT EXAM: Two-dimensional and M-mode echocardiogram with Doppler and color Doppler. Blood Pressure: 151/86 mmHg INDICATION SVT RISK FACTORS Height: 65, Weight: 214 DIMENSIONS LVDd4.2 (3.8-5.7cm)LA (2D)3.5 (1.9-4.0cm)Aortic Root3.5 (2.0-3.7cm) LVDs2.6 (2.5-4.0cm)LA (MM) (1.9-4.0cm)Aortic Cusp Exc1.4 (1.5-2.0cm) EF (%) 70.0 (55-70%)Rt. Atrium3.7 (1.9-4.0cm)Asc. Aorta cm Mitral Valve MitralMitral Stenosis E wave0.67m/sMV Mean GR.mmHg A wave0.83m/sMV Peak GR.mmHg E/A ratio0.82D MVAcm2 DECEL [id number] 1/2 [id number] IVRTmsDop MVA2.66cm2 Aortic Valve Aortic ValveAortic Stenosis V11.17m/George Mean GR.7mmHg V21.75m/George Peak GR.12mmHg LVOT Diameter1.8 (1.8-2.4cm)Doppler AVA1.70cm2 Pulmonic Valve V20.77m/s Other Information Technically limited study due to body habitus. Conclusion lvef 55% moderate LVH no sever valve abnormality noted
[2024-10-27] VITALS (9 sets, daily range): BP systolic 127–171; BP diastolic 67–93; PULSE 52–94; RESP 16–18; TEMP 96.6–98.3; O2SAT 93–98
[2024-10-27 06:45] LABS: Basophils # (auto) 0 10 ^3/uL (0-0.2); Basophils % (auto) 0.6 % (0.0-2.0); Eosinophils # (auto) 0.1 10 ^3/uL (0-0.8); Eosinophils % (auto) 1.7 % (0.0-7.0); Hemoglobin 12.4 g/dL (12.2-16.2); Lymphocytes # (auto) 1.2 10 ^3/uL (0.4-5.4); Lymphocytes % (auto) 28.1 % (10.0-50.0); Mean Corpuscular Hemoglobin 27.3 pg (28.0-32.0); Mean Corpuscular Hgb Conc. 32.7 g/dL (32.0-36.0); Mean Corpuscular Volume 83.3 fL (80.0-100.0); Monocytes # (auto) 0.4 10 ^3/uL (0-1.3); Monocytes % (auto) 9.4 % (0.0-12.0); Neutrophils # (auto) 2.5 10 ^3/uL (1.6-8.6); Neutrophils % (auto) 60.2 % (37.0-80.0); Platelet Count (auto) 294 10^3/uL (140-450); Red Blood Cells 4.56 10^6/uL (4.0-5.20); Red Cell Distribution Width 13.8 % (11.8-14.3); White Blood Cell 4.2 10^3/uL (4.4-10.8)
[2024-10-27 07:01] LABS: INR 1.05 (0.9-1.15); Partial Thromboplastin Time 33.6 SEC (24.5-34.5); Prothrombin Time 11.1 sec (9.3-11.8)
[2024-10-27 07:13] LABS: Alanine Aminotransferase 12 U/L (7-40); Alkaline Phosphatase 64 U/L (46-116); Anion Gap 10 (5-15); BUN/Creatinine Ratio 20.5 (10.0-20.0); Calcium 8.9 mg/dL (8.7-10.4); Carbon Dioxide 25 mmol/L (20-31); Chloride 106 mmol/L (98-107); Sodium 141 mmol/L (136-145); Total Protein 6.3 g/dL (5.7-8.2)
[2024-10-27 07:14] LABS: Albumin 3.8 g/dL (3.2-4.8); Bilirubin, Total 0.6 mg/dL (0.2-1.0)
[2024-10-27 07:16] LABS: Potassium 3.3 mmol/L (3.5-5.1)
[2024-10-27 07:17] LABS: Aspartate Aminotransferase 10 U/L (13-40); Blood Urea Nitrogen 24 mg/dL (9-23); Glucose 140 mg/dL (74-106)
[2024-10-27] MEDS ORDERED: MONT-8 PO (08:00)
[2024-10-27] MEDS ORDERED: TROS20TA3 PO (08:00)
[2024-10-27] MEDS ORDERED: ATOR-507 PO (08:00)
[2024-10-27] MEDS ORDERED: GLIP-110 PO (08:00)
[2024-10-27] MEDS ORDERED: ATOG10TA PO (08:00)
[2024-10-27] MEDS ORDERED: PANT40TA2 PO (08:00)
[2024-10-27] MEDS: PANTOPRAZOLE 40 MG/10 ML VIAL INJ IV SCH (08:45)
[2024-10-27] MEDS: HYDROcodone-ACET 5/325MG TAB PO PRN (08:59)
--- NOTE | 2024-10-27 09:26 | DVHPN2 ---
Consult Progress Note Date Seen: Oct 27, 2024 Subjective Review of Systems: CVS:Normal, RESPIRATORY:Normal, NEURO:Abnormal Other Systems: C/o JOHNSON radiating to the lower extremities, N/V Objective vital signs Vital Sign Date Time Temp Pulse Resp B/P (MAP) Pulse Ox O2 Delivery O2 Flow Rate FiO2 10/27/24 08:47 69 173/90 10/27/24 05:00 97.5 18 96 97.5 10/26/24 20:00 Room Air* 0 21 Total Intake and Output 10/26/24 10/26/24 10/27/24 15:00 23:00 07:00 Intake Total 1812 ml 940 ml Output Total 150 ml 700 ml Balance 1662 ml 240 ml medications Current Medications Medications Dose Ordered Sig/Jayla Route Start Time Stop Time Status Last Admin Dose Admin Aspirin 81 mg DAILY PO 10/26/24 10:00 10/27/24 08:45 81 MG Losartan Potassium 25 mg DAILY PO 10/26/24 10:00 10/27/24 08:45 25 MG Acetaminophen 650 mg Q6HP PRN PO 10/25/24 19:00 10/27/24 00:59 650 MG Lorazepam 0.5 mg Q6HP PRN PO 10/25/24 19:00 Docusate Sodium 100 mg DAILY PO 10/26/24 10:00 10/27/24 08:46 100 MG Nitroglycerin 0.4 mg Q5MINP PRN SL 10/25/24 19:00 Ondansetron HCl 4 mg Q4HP PRN IV 10/25/24 19:00 10/27/24 08:58 4 MG Diagnostic Test (Pha) 1 strip ACHS 10/25/24 22:00 10/27/24 06:20 1 STRIP Insulin Human Regular ACHS SC 10/25/24 22:00 10/27/24 06:21 2 UNITS Dextrose 50 ml UD PRN IV 10/25/24 19:30 Carvedilol 3.125 mg Q12HR PO 10/26/24 22:00 10/27/24 08:47 3.125 MG Pantoprazole Sodium 40 mg DAILY IV 10/27/24 10:00 10/27/24 08:45 40 MG Sodium Chloride 1,000 ml @ 60 mls/hr [id number] IV 10/26/24 10:45 10/26/24 13:29 60 MLS/HR Clonidine HCl 0.1 mg Q6HP PRN PO 10/26/24 10:45 Acetaminophen/ Hydrocodone Bitart 1 tab Q6HPRN PRN PO 10/27/24 08:30 10/27/24 08:59 1 TAB Examination: LUNGS:Normal, CVS:Normal (NSR. No evidence of cardiac arrhythmias on monitor), NEURO:Normal laboratory and microbiology Laboratory Tests 10/27/24 05:16 Test 10/27/24 05:16 Range/Units Serum Glucose 140 H 74-106 mg/dL Problem List/Assessment/Plan Problem List/Assessment/Plan Hypertensive emergency Questionable SVT event Rule out primary hyperaldosteronism Guw-bpivjjr-bobbqfsoh diabetes mellitus Obesity Plan/Recommendation (Dr. Gomes) Transthoracic echocardiogram revealed LVEF of 55% with moderate LVH. Aldosterone/renin ratio to rule out primary hyperaldosteronism is pending at this time. Continue aggressive blood pressure control and up-titrate medications for a target SBP <140 mmHg. Continue beta-kinza, monitor HR closely. Replete electrolytes as necessary. TSH WNL. No cardiac arrhythmias have been identified during hospital stay. We recommend an outpatient event monitor for further evaluation. Follow-up with Cardiology at [facility] at first available. There is no further cardiac work-up indicated at this time. Kindly call with any questions or concerns. Thank you for allowing us to participate in this patient's care. This medical document was created using an electronic medical record system with voice recognition software and computerized dictation system. Although this document has been carefully reviewed, there might still be some phonetic and typographical errors. Occasional wrong-word or ``sound-alike substitutions may have occurred due to the inherent limitations of voice recognition software. These areas are purely typographical due to imperfections of the software programs and do not reflect any compromise in the patient's medical care. Please read the chart carefully and recognize, using context, where these substitutions have occurred. Plan discussed with: Patient, Other Date of Service: Oct 27, 2024 Billing Provider: MAMI FARRELL Cardiology Common Codes: [id number] INP/OBS CARE(Mod) MAMI FARRELL Oct 27, 2024 09:26
--- NOTE | 2024-10-27 09:50 | DVHDS2 ---
Discharge Summary Date of Admission Oct 25, 2024 at 18:56 Date of Discharge: Oct 27, 2024 Labs/Diagnostic Data: Laboratory Results Test 10/27/24 05:16 10/26/24 14:00 10/26/24 05:50 10/25/24 22:21 White Blood Count 4.2 10^3/uL (4.4-10.8) Red Blood Count 4.56 10^6/uL (4.0-5.20) Hemoglobin 12.4 g/dL (12.2-16.2) Hematocrit 38.0 % (36.0-46.0) Mean Corpuscular Volume 83.3 fL (80.0-100.0) Mean Corpuscular Hemoglobin 27.3 pg (28.0-32.0) Mean Corpuscular Hemoglobin Concent 32.7 g/dL (32.0-36.0) Red Cell Distribution Width 13.8 % (11.8-14.3) Platelet Count 294 10^3/uL (140-450) Mean Platelet Volume 8.4 fL (6.9-10.8) Neutrophils (%) (Auto) 60.2 % (37.0-80.0) Lymphocytes (%) (Auto) 28.1 % (10.0-50.0) Monocytes (%) (Auto) 9.4 % (0.0-12.0) Eosinophils (%) (Auto) 1.7 % (0.0-7.0) Basophils (%) (Auto) 0.6 % (0.0-2.0) Neutrophils # (Auto) 2.5 10 ^3/uL (1.6-8.6) Lymphocytes # (Auto) 1.2 10 ^3/uL (0.4-5.4) Monocytes # (Auto) 0.4 10 ^3/uL (0-1.3) Eosinophils # (Auto) 0.1 10 ^3/uL (0-0.8) Basophils # (Auto) 0 10 ^3/uL (0-0.2) Nucleated Red Blood Cells 0.0 % Prothrombin Time 11.1 sec (9.3-11.8) Prothrombin Time INR 1.05 (0.9-1.15) Activated Partial Thromboplast Time 33.6 SEC (24.5-34.5) Sodium Level 141 mmol/L (136-145) Potassium Level 3.3 mmol/L (3.5-5.1) Chloride Level 106 mmol/L (98-107) Carbon Dioxide Level 25 mmol/L (20-31) Anion Gap 10 (5-15) Blood Urea Nitrogen 24 mg/dL (9-23) Creatinine 1.17 mg/dL (0.550-1.02) Glomerular Filtration Rate Calc 53 mL/min (>90) BUN/Creatinine Ratio 20.5 (10.0-20.0) Serum Glucose 140 mg/dL (74-106) POC Glucose 149 mg/dl (70-106) Hemoglobin A1c 6.5 % A1C (<5.7) Calcium Level 8.9 mg/dL (8.7-10.4) Total Bilirubin 0.6 mg/dL (0.2-1.0) Aspartate Amino Transferase (AST) 10 U/L (13-40) Alanine Aminotransferase (ALT) 12 U/L (7-40) Alkaline Phosphatase 64 U/L (46-116) Total Protein 6.3 g/dL (5.7-8.2) Albumin 3.8 g/dL (3.2-4.8) Thyroid Stimulating Hormone (TSH) 0.85 uIU/mL (0.55-4.78) Magnesium Level 2.1 mg/dL (1.6-2.6) Troponin I High Sensitivity 29 ng/L (</=34) Test 10/25/24 11:21 Urine Color Light-yellow (Yellow) Urine Clarity Clear (Clear) Urine pH 7.0 (5.0-9.0) Urine Specific [place] 1.007 (1.001-1.035) Urine Protein 1+ (Negative) Urine Ketones Negative (Negative) Urine Blood Negative /uL (Negative) Urine Nitrite Negative (Negative) Urine Bilirubin Negative (Negative) Urine Urobilinogen Normal mg/dL (Negative) Urine Leukocyte Esterase Negative /uL (Negative) Urine RBC 2 /hpf (0 - 4) Urine Microscopic WBC 1 /HPF (0-5) Urine Squamous Epithelial Cells Few /hpf (<5) Urine Bacteria None seen /hpf (None Seen) Urine Glucose 1+ mg/dL (Normal) Other Laboratory Tests 10/27/24 05:16 Brief Hx & Hospital Course: SEE DICTATED NOTE Condition at Discharge: Fair Final Diagnosis/Problems List HTN Discharge Disposition: Acute Care Facility Discharge Instruct/Medications Diet: Cardiac 2g Na,low cholest Activity: No Restrictions, As Tolerated Follow Up/Referral: FU WITH [facility] Medications: PER JUL Discharge Statement: "Patient was advised to return to the ER or call 911 if any headaches, dizziness, shortness of breath, chest pain, abdominal pain, bleeding, fevers, or worsening of medical condition. Patient was counseled about treatment plan, medications, possible side effects, patientverbalized understanding. All questions were answered to the best of my ability. This discharge took greater then 30 minutes in planning, reviewing documentation, counseling the patient, and discussing with other team members." ASSESSMENT ASSESSMENT Assessment HTN Date of Service: Oct 27, 2024 Billing Provider: OBNI CHEN MD Common Visit Codes: 64694-HTU/OBS DISCH DAY >30min Secondary Visit Codes: [id number] CARE PLAN 30 MINUTES BONI CHEN MD Oct 27, 2024 09:50
[2024-10-27] MEDS ORDERED: MORPHINE SULFATE INJ 2 MG/ml SYRG IV PRN (10:00)
[2024-10-27] MEDS: POTASSIUM CHL 20 Meq TABLET PO ONE ×2 (10:00→10:49)
--- NOTE | 2024-10-27 10:00 | DVHDS ---
DATE OF DISCHARGE: 10/27/2024 HISTORY OF PRESENT ILLNESS: The patient is a 63-year-old lady who has complained of palpitation and elevated blood pressure. The patient has a history of hypertension and diabetes. She also complained of nausea and vomiting. HOSPITAL COURSE: The patient had an elevated blood pressure of 192/142 at admission. The patient's troponin levels were negative for acute OR. Her chest x-ray was unremarkable. The patient was seen in Cardiology consult by Dr. Gomes. Echocardiogram done showed ejection fraction of 55%. The patient at this time complains of generalized pains including abdominal pain. She continues to have complaints of palpitation. The patient will now be transferred to [place] for further management. FINAL DIAGNOSES: * Hypertensive, questionable emergency, questionable urgency. * Likely SVT. * Abdominal pain with vomiting, questionable gastritis. * Obesity. * Diabetes mellitus. * Generalized pain. Time spent in discharge planning was 37 minutes. ADVANCED CARE PLANNING: The patient is Full Code. Time spent was 18 minutes. MD DC Perez/ROBERTO TID: [id number] RECEIPT: [id number]
[2024-10-27] MEDS: cloNIDine HCL 0.1 MG TAB PO PRN (11:06)
== END 2024-10-27 21:40 | disposition short-term general hospital (02) | DRG 392 ==
LOC: EDBD 10:40 → ER 10:40 → OVERFLOW 18:56 → TELE-CENTR 21:36
PROVIDERS: ADMIT Internal Medicine; ATTEND Internal Medicine
DX: K29.70 Gastritis, unspecified, without bleeding (principal); I47.10 Supraventricular tachycardia, unspecified; I16.1 Hypertensive emergency; E11.65 Type 2 diabetes mellitus with hyperglycemia; E66.9 Obesity, unspecified; K21.9 Gastro-esophageal reflux disease without esophagitis; I10 Essential (primary) hypertension; Z88.0 Allergy status to penicillin; Z79.899 Other long term (current) drug therapy; Z83.3 Family history of diabetes mellitus; Z82.49 Family history of ischemic heart disease and other diseases of the circulatory system; Z90.710 Acquired absence of both cervix and uterus; Z82.5 Family history of asthma and other chronic lower respiratory diseases; Z68.35 Body mass index [BMI] 35.0-35.9, adult; Z79.84 Long term (current) use of oral hypoglycemic drugs; I16.0 Hypertensive urgency
CPT/HCPCS: 36415; 71045; 80048; 80053; 81001; 82088; 82962; 83036; 83690; 83735; 84244; 84443; 84484; 85025; 85610; 85730; 93005; 93306; 97163; G0378; J1815; J2003; J2405; J2470

== ENCOUNTER 2025-01-09 08:06 | Emergency (ER) | payer OTHER, MEDICAID ==
[~2025-01-09] VITALS: Ht 172.7 cm; Wt 109.0 kg
[~2025-01-09 08:06] MED LIST changes: +ATOG10TA PO; +ATOR-507 PO; +GLIP-110 PO; +MONT-8 PO; +PANT40TA2 PO; +TROS20TA3 PO
--- NOTE | 2025-01-09 08:13 | ED.PDOC ---
HPI Comments This is a 64 year old female MELISSA presenting to the ED with chief complaint of tachycardia. Patient reports that she was suddenly woken up this morning around 6am with a fast heart rate and associated chest pain, SOB, dizziness, and nausea. Patient relays that she has felt similar symptoms in the past and was diagnosed with SVT at the time. Patient denies any headache, vomiting, abdominal pain, fever, or chills. Chief Complaint: Chest Pain Time Seen by MD: 08:11 Primary Care Provider: KOURTNEY Reviewed Notes: Nurses Notes, Swimming Professor Notes, Medications, Allergies Allergies: Coded Allergies: Azithromycin (Verified Allergy, Unknown, 01/09/25) Penicillins (Verified Allergy, Unknown, 06/04/23) Tetracyclines & Related (Verified Allergy, Unknown, 01/09/25) Home Meds Active Scripts Ondansetron Odt 4MG Tab (ZOFRAN PO) 4 Mg Tb, 4 MG PO Q8HPRN PRN for 3 Days, #9 TAB ODT TAB-DISSOLVE IN MOUTH, THEN SWALLOW Prov:CHARLIE RANDOLPH DO 06/04/23 Reported Medications Atogepant (Qulipta) 10 Mg Tab, 10 MG PO, TAB 10/27/24 Pantoprazole Sodium Sesquihydr (Protonix) 40 Mg Tab, 40 MG PO DAILY, #30 TAB 10/27/24 Montelukast Sodium (MONTELUKAST SODIUM) 10 Mg Tab, 1 TAB PO DAILY, #30 TAB 5 Refills 10/27/24 Glipizide (Glipizide Er) 5 Mg Tab, 5 MG PO for 30 Days, MG 10/27/24 Atorvastatin Calcium (Lipitor) 40 Mg Tab, 1 TAB PO QPM, #90 TAB 1 Refill 10/27/24 Trospium Chloride (Trospium Chloride) 20 Mg Tab, 20 MG PO, TAB 10/27/24 Information Source: Patient, Emergency Med Personnel Mode of Arrival: EMS Severity: Moderate Timing: Hours Duration: Since onset Prehospital treatment: None Location: Chest (L) Radiation: No Radiation Quality: Aching Onset: At Rest Cardiac Risk Factors: HTN, Diabetes PE Risk Factors: None History of: Similar pain in past Associated Signs and Symptoms: SOB Past Medical History PAST MEDICAL HISTORY: DM, HTN Past Medical History (Other): SVT Surgical History: Hysterectomy BRIDGE BUILDER History: No Pertinent BRIDGE BUILDER History Family History Family History: Family hx of DM, Family hx of Cancer, Family hx of heart nelly Social History Smoker: Non-Smoker Alcohol: Denies ETOH Use Drugs: Denies Drug Use Lives In: Home Constitutional: denies: chills, diaphoresis, fatigue, fever, malaise, sweats, weakness, others EENTM: denies: blurred vision, double vision, ear bleeding, ear discharge, ear drainage, ear pain, ear ringing, eye pain, eye redness, hearing loss, mouth pain, mouth swelling, nasal discharge, nose bleeding, nose congestion, nose pain, photophobia, tearing, throat pain, throat swelling, voice changes, others Respiratory: reports: shortness of breath; denies: cough, hemoptysis, orthopnea, SOB at rest, SOB with excertion, stridor, wheezing, others Cardiovascular: reports: chest pain, irregular heart beat; denies: dizzy spells, diaphoresis, Dyspnea on exertion, edema, left arm pain, lightheadedness, palpitations, PND, syncope, others Gastrointestinal: reports: nausea; denies: abdomen distended, abdominal pain, blood streaked bowels, constipated, diarrhea, dysphagia, difficulty swallowing, hematemesis, melena, poor appetite, poor fluid intake, rectal bleeding, rectal pain, vomiting, others Genitourinary: denies: abnormal vagina bleeding, burning, dyspareunia, dysuria, flank pain, frequency, hematuria, incontinence, pain, , vagina discharge, urgency, others Neurological: reports: dizziness; denies: fainting, headache, left sided numbness, left sided weakness, numbness, paresthesia, pre-existing deficit, right sided numbness, right sided weakness, seizure, speech problems, tingling, tremors, weakness, others Musculoskeletal: denies: back pain, gout, joint pain, joint swelling, muscle pain, muscle stiffness, neck pain, others Integumetry: denies: bruises, change in color, change in hair/nails, dryness, laceration, lesions, lumps, rash, wounds, others Allergic/Immunocompromised: denies: Difficulty Healing, Frequent Infections, Hives, Itching, others Hematologic/Lymphatic: denies: anemia, blood clots, easy bleeding, easy bruising, swollen glands, others Endocrine: denies: excessive hunger, excessive sweating, excessive thirst, excessive urination, flushing, intolerance to cold, intolerance to heat, unexplained weight gain, unexplained weight loss, others Psychiatric: denies: anxiety, bipolar disorder, depression, hopeless, panic disorder, schizophrenia, sleepless, suicidal, others All Other Systems: Reviewed and Negative Physical Exam General Appearance: No Apparent Distress, Normal HEENT: Normal ENT Inspection, Pharynx Normal, TMs Normal Neck: Full Range of Motion, Non-Tender, Normal, Normal Inspection Respiratory: Chest Non-Tender, Lungs Clear, No Accessory Muscle Use, No Respiratory Distress, Normal Breath Sounds Cardiovascular: No Edema, No JVD, No Murmur, No Gallop, Normal Peripheral Pulses, Tachycardia Breast Exam: Deferred Gastrointestinal: No Organomegaly, Non Tender, No Pulsatile Mass, Normal Bowel Sounds, Soft Genitalia: Deferred Pelvic: Deferred Rectal: Deferred Extremities: No calf tenderness, Normal capillary refill, Normal inspection, Normal range of motion, Non-tender, No pedal edema Musculoskeletal : Apperance: Normal 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 Was a procedure done?: No CP Differential Dx Differential Diagnosis: A-fib, A-Flutter, Angina, Anxiety / Panic Attack, Atrial Dysrhythmia, Electrolyte Disorder, Hyperthyroidism, Hyperventilation, MAT, AR, Pacemaker Malfunction, PSVT X-Ray, Labs, Meds, VS Vital Signs Date Time Temp Pulse Resp B/P (MAP) Pulse Ox O2 Delivery O2 Flow Rate FiO2 01/09/25 10:01 76 14 167/87 01/09/25 10:00 82 22 167/95 (119) 99 01/09/25 09:58 85 01/09/25 09:35 80 17 144/92 01/09/25 08:33 87 16 96 Room Air* 0 21 01/09/25 08:32 98.2 87 16 148/99 (115) 96 98.2 01/09/25 08:22 144 01/09/25 08:13 151 01/09/25 08:13 151 01/09/25 08:12 98.4 136 17 178/124 97 98.4 Lab Test 01/09/25 09:38 01/09/25 08:46 01/09/25 08:21 Range/Units Troponin I High Sensitivity 13 11 </=34 ng/L Urine Color Colorless Yellow Urine Clarity Clear Clear Urine pH 7.5 5.0-9.0 Urine Specific [place] 1.008 1.001-1.035 Urine Protein 1+ H Negative Urine Ketones Trace Negative Urine Blood Negative Negative /uL Urine Nitrite Negative Negative Urine Bilirubin Negative Negative Urine Urobilinogen Normal Negative mg/dL Urine Leukocyte Esterase Negative Negative /uL Urine RBC 2 0 - 4 /hpf Urine Microscopic WBC 1 0-5 /HPF Urine Squamous Epithelial Cells Few <5 /hpf Urine Bacteria Few H None Seen /hpf Urine Glucose 1+ H Normal mg/dL White Blood Count 6.7 4.4-10.8 10^3/uL Red Blood Count 5.20 4.0-5.20 10^6/uL Hemoglobin 14.3 12.2-16.2 g/dL Hematocrit 42.7 36.0-46.0 % Mean Corpuscular Volume 82.2 80.0-100.0 fL Mean Corpuscular Hemoglobin 27.5 L 28.0-32.0 pg Mean Corpuscular Hemoglobin Concent 33.4 32.0-36.0 g/dL Red Cell Distribution Width 13.4 11.8-14.3 % Platelet Count 326 140-450 10^3/uL Mean Platelet Volume 8.5 6.9-10.8 fL Neutrophils (%) (Auto) 63.8 37.0-80.0 % Lymphocytes (%) (Auto) 25.0 10.0-50.0 % Monocytes (%) (Auto) 9.5 0.0-12.0 % Eosinophils (%) (Auto) 1.1 0.0-7.0 % Basophils (%) (Auto) 0.6 0.0-2.0 % Neutrophils # (Auto) 4.3 1.6-8.6 10 ^3/uL Lymphocytes # (Auto) 1.7 0.4-5.4 10 ^3/uL Monocytes # (Auto) 0.6 0-1.3 10 ^3/uL Eosinophils # (Auto) 0.1 0-0.8 10 ^3/uL Basophils # (Auto) 0 0-0.2 10 ^3/uL Nucleated Red Blood Cells 0.1 % D-Dimer, Quantitative 0.42 0.0-0.49 mg/L FEU Sodium Level 140 136-145 mmol/L Potassium Level 3.7 3.5-5.1 mmol/L Chloride Level 105 98-107 mmol/L Carbon Dioxide Level 23 20-31 mmol/L Anion Gap 12 5-15 Blood Urea Nitrogen 18 9-23 mg/dL Creatinine 0.99 0.550-1.02 mg/dL Glomerular Filtration Rate Calc 64 >90 mL/min BUN/Creatinine Ratio 18.2 10.0-20.0 Serum Glucose 194 H 74-106 mg/dL Calcium Level 9.2 8.7-10.4 mg/dL Magnesium Level 1.8 1.6-2.6 mg/dL Total Bilirubin 0.6 0.2-1.0 mg/dL Aspartate Amino Transferase (AST) 18 13-40 U/L Alanine Aminotransferase (ALT) 18 7-40 U/L Alkaline Phosphatase 106 46-116 U/L B-Type Natriuretic Peptide 54.00 0-100 pg/mL Total Protein 7.5 5.7-8.2 g/dL Albumin 4.8 3.2-4.8 g/dL Current Medications Medications (Trade) Dose Ordered Sig/Jayla Route Start Time Stop Time Status Last Admin Sodium Chloride 1,000 ml @ 1,000 mls/hr Q1H ONCE IV 01/09/25 08:30 01/09/25 09:29 DC 01/09/25 09:34 Ondansetron HCl (Zofran) 4 mg ONCE ONCE IV 01/09/25 09:30 01/09/25 09:31 DC 01/09/25 09:34 Morphine Sulfate 2 mg ONCE ONCE IV 01/09/25 09:30 01/09/25 09:31 DC 01/09/25 09:[address] [address] Ph: [phone] DIAGNOSTIC IMAGING Diagnostic Imaging Report : [id number] Signed PATIENT: STEVIE STRICKLAND ACCT: [id number] UNIT: [id number] : 1960 LOC: ER ROOM / BED: / AGE / SEX: 64 / F ADM STATUS: REG ER SERVICE 0 ORDERING PHYSICIAN: JANICE ARAYA MD PROCEDURE(s): CXR1 - CHEST XRAY 1 VIEW REASON: chest pain ORDER NUMBER(s): [id number], ACCESSION NUMBER(s): [id number] XY CHEST XRAY 1 VIEW, HISTORY: chest pain COMPARISON: XY CHEST PORTABLE on DOS: 10/25/24 XY CHEST PORTABLE on DOS: 10/25/24 TECHNICAL DATA: 1 view of the chest was obtained. FINDINGS: Lines and tubes: None Cardiomediastinal silhouette: normal Pulmonary vasculature: normal Lung expansion: normal Lung airspace: normal Lung interstitium: normal Pleura: normal Pneumothorax: no Bones: Unremarkable Other: no IMPRESSION: No acute intrathoracic abnormality. ATED BY: ROBERTO NAJERA MD DICTATED DATE/TIME: 01/09/25 1000 SIGNED BY: ROBERTO NAJERA MD SIGNED DATE/TIME: 01/09/25 1000 CC: X-Ray, Labs, Meds, VS Comment This 70-year-old female presented to the emergency room in SVT. The patient has associated chest pain and shortness of breath. The patient has spontaneously converted. However, she continued complaining of chest pain. Her workup was otherwise benign. Nonetheless, secondary to the patient's multiple risk factors, age and being SVT, she will be admitted for further workup and management. Patient may require a pacemaker. Time of 1ST Reevaluation: 09:11 Reevaluation 1ST: Improved Patient Education/Counseling: Diagnosis, Treatment Family Education/Counseling: No Family Present SEPSIS Sepsis Screen Physician Orders Electrocardigram (01/09/25 08:08) Troponin-I Hs (01/09/25 11:08) Electrocardigram (01/09/25 09:08) Chest Xray 1 View (01/09/25 09:31) Vital Signs Date Time Temp Pulse Resp B/P (MAP) Pulse Ox O2 Delivery O2 Flow Rate FiO2 01/09/25 10:01 76 14 167/87 01/09/25 10:00 82 22 167/95 (119) 99 01/09/25 09:58 85 01/09/25 09:35 80 17 144/92 01/09/25 08:33 87 16 96 Room Air* 0 21 01/09/25 08:32 98.2 87 16 148/99 (115) 96 98.2 01/09/25 08:22 144 01/09/25 08:13 151 01/09/25 08:13 151 01/09/25 08:12 98.4 136 17 178/124 97 98.4 Laboratory Tests Test 01/09/25 08:21 White Blood Count 6.7 10^3/uL (4.4-10.8) Medications Medications Dose Ordered Sig/Jayla Route Start Time Stop Time Status Last Admin Dose Admin Morphine Sulfate 2 mg ONCE ONCE IV 01/09/25 09:30 01/09/25 09:31 DC 01/09/25 09:35 Ondansetron HCl 4 mg ONCE ONCE IV 01/09/25 09:30 01/09/25 09:31 DC 01/09/25 09:34 Sodium Chloride 1,000 ml @ 1,000 mls/hr Q1H ONCE IV 01/09/25 08:30 01/09/25 09:29 DC 01/09/25 09:34 Departure 1 Departure Time of Disposition: 10:49 Impression: Primary Impression: Chest pain Additional Impressions: Angina pectoris SVT (supraventricular tachycardia) Disposition: ADMITTED INPATIENT Admit to: Tele Condition: Serious Critical Care Note Critical Care Time?: No Stability Stability form required: No Heart Score Heart Score: Heart Score Response (Comments) Value History Moderate Suspicious 1 EKG Repolarization Disturb 1 Age 45-64 1 Risk Factors >3 or Hx ASHD 2 Troponin Normal limit 0 Total 5 I personally scribed for JANICE ARAYA MD ([email or web address]) on 01/09/25 at 08:13. Electr onically submitted by Jan Hemphill ([email or web address]). I personally scribed for JANICE ARAYA MD ([email or web address]) on 01/09/25 at 10:37. Electron ically submitted by Jan Hemphill ([email or web address]). JANICE ARAYA MD Jan 09, 2025 08:13
[2025-01-09] MEDS: LORazepam 2MG/ML-1ML VIAL IV ONE (08:15)
[2025-01-09 08:33] VITALS: PULSE 87; RESP 16; O2SAT 96
[2025-01-09 08:51] LABS: Hematocrit 42.7 % (36.0-46.0); Hemoglobin 14.3 g/dL (12.2-16.2); Mean Corpuscular Hemoglobin 27.5 pg (28.0-32.0); Mean Corpuscular Volume 82.2 fL (80.0-100.0); Nucleated Red Blood Cells % 0.1 %
[2025-01-09 09:00] LABS: Alanine Aminotransferase 18 U/L (7-40); Albumin 4.8 g/dL (3.2-4.8); Alkaline Phosphatase 106 U/L (46-116); Anion Gap 12 (5-15); BUN/Creatinine Ratio 18.2 (10.0-20.0); Bilirubin, Total 0.6 mg/dL (0.2-1.0); Blood Urea Nitrogen 18 mg/dL (9-23); Calcium 9.2 mg/dL (8.7-10.4); Carbon Dioxide 23 mmol/L (20-31); Chloride 105 mmol/L (98-107); Glucose 194 mg/dL (74-106); Magnesium 1.8 mg/dL (1.6-2.6); Potassium 3.7 mmol/L (3.5-5.1); Sodium 140 mmol/L (136-145); Total Protein 7.5 g/dL (5.7-8.2)
[2025-01-09] MEDS: ONDANSETRON HCL 4 MG/2 ML VIAL IV ONE (09:34)
[2025-01-09] MEDS: SODIUM CHLORIDE 0.9% 1,000 ML IV ONE (09:34)
[2025-01-09] MEDS: MORPHINE SULFATE INJ 2 MG/ml SYRG IV ONE (09:35)
--- NOTE | 2025-01-09 10:02 | DVH ---
XY CHEST XRAY 1 VIEW, HISTORY: chest pain COMPARISON: XY CHEST PORTABLE on DOS: 10/25/24 XY CHEST PORTABLE on DOS: 10/25/24 TECHNICAL DATA: 1 view of the chest was obtained. FINDINGS: Lines and tubes: None Cardiomediastinal silhouette: normal Pulmonary vasculature: normal Lung expansion: normal Lung airspace: normal Lung interstitium: normal Pleura: normal Pneumothorax: no Bones: Unremarkable Other: no IMPRESSION: No acute intrathoracic abnormality.
[2025-01-09 10:35] LABS: Urine Protein, UAD 1+ (Negative)
[2025-01-09 13:53] VITALS: BP 154/75; PULSE 66; RESP 16; TEMP 97.9; O2SAT 100
--- NOTE | 2025-01-09 18:58 | ECG ---
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
--- NOTE | 2025-01-09 18:59 | ECG ---
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
== END 2025-01-09 13:47 | disposition short-term general hospital (02) ==
LOC: EDBD 08:06 → ER 08:06
DX: I47.10 Supraventricular tachycardia, unspecified (principal); I20.89 Other forms of angina pectoris; R07.89 Other chest pain; I10 Essential (primary) hypertension; E11.9 Type 2 diabetes mellitus without complications; Z79.899 Other long term (current) drug therapy; Z88.0 Allergy status to penicillin; Z88.1 Allergy status to other antibiotic agents; Z90.710 Acquired absence of both cervix and uterus
CPT/HCPCS: 36415; 71045; 80053; 81001; 83735; 83880; 84484; 85025; 85379; 93005; 96361; 96374; 96375; 99285; J2270; J2405; J7030

== ENCOUNTER 2025-02-08 04:23 | Inpatient (IN) | payer OTHER, MEDICAID ==
[~2025-02-08] VITALS: Ht 165.1 cm; Wt 100.9 kg
[2025-02-08] MEDS: SODIUM CHLORIDE 0.9% 1,000 ML IV ONE ×2 (05:21→11:00)
[2025-02-08 05:24] LABS: Hematocrit 42.0 % (36.0-46.0); Hemoglobin 14.1 g/dL (12.2-16.2); Mean Corpuscular Hemoglobin 27.3 pg (28.0-32.0); Mean Corpuscular Volume 81.3 fL (80.0-100.0); Nucleated Red Blood Cells % 0.1 %
[2025-02-08] MEDS: MORPHINE SULFATE INJ 2 MG/ml SYRG IV ONE (05:27)
[2025-02-08] MEDS: METOPROLOL TARTRATE 1MG/1ML-5ML VIAL IV ONE ×2 (05:30→05:39)
[2025-02-08] MEDS: ONDANSETRON HCL 4 MG/2 ML VIAL IV ONE ×2 (05:39→08:33)
--- NOTE | 2025-02-08 05:39 | DVH ---
CHEST RADIOGRAPH Indication: SOB Technique: Single frontal view of the chest was obtained COMPARISON: XY CHEST XRAY 1 VIEW on DOS: 01/09/25, XY CHEST PORTABLE on DOS: 10/25/24 FINDINGS: Lines and Tubes: None Lungs: Congestion Pleura: No effusion. No pneumothorax. Cardiomediastinal contours: Unremarkable Bones: Unremarkable IMPRESSION: Increased interstital prominence. This may represent pulmonary vascular congestion and/or viral pneum onia. Clinical correlation advised.
[2025-02-08 05:40] LABS: Chloride 104 mmol/L (98-107); Sodium 142 mmol/L (136-145)
[2025-02-08] MEDS: MORPHINE SULFATE INJ 2 MG/ml SYRG ONE (05:40)
[2025-02-08 05:41] LABS: Anion Gap 14 (5-15); Carbon Dioxide 24 mmol/L (20-31)
[2025-02-08] MEDS: ONDANSETRON HCL 4 MG/2 ML VIAL ONE ×3 (05:41→12:28)
[2025-02-08 05:42] LABS: Calcium 9.8 mg/dL (8.7-10.4)
[2025-02-08 05:45] LABS: Potassium 3.3 mmol/L (3.5-5.1)
[2025-02-08 05:46] LABS: BUN/Creatinine Ratio 16.3 (10.0-20.0); Blood Urea Nitrogen 15 mg/dL (9-23)
--- NOTE | 2025-02-08 05:48 | ED.PDOC ---
History of Present Illness HPI Comments 64-year-old female presents with spouse for chief complaint shortness of breath, chest pain, palpitations, abdominal pain, nausea, vomiting. Patient endorses additional onset of a remaining symptoms after had dealing with nausea and vomiting symptoms since Saturday. Only significant history of diabetes and hypertension. No endorsed recent travel, sick contact, injuries, or further pertinent events or history. Denies having any cough, congestion, fever, urinary symptoms, or further associated symptoms. REVIEW OF SYSTEMS: General: No fever, no chills, or fatigue HEENT: No sore throat, no earache, no congestion, no neck pain. Cardiac: Chest pain and palpitations Lungs: Shortness of breath, no cough. GI: Nausea and vomiting, abdominal pain, no diarrhea, no constipation : No dysuria, frequency, or urgency. No hematuria. Musculoskeletal: No joint pain , no joint swelling, no extremity edema. Skin: No rash, no itching. Neuro: No headache, no dizziness, no weakness PHYSICAL EXAM: General: Awake, alert and oriented. No acute distress. Skin: Skin in warm, dry and intact. Appropriate color for ethnicity. HEENT: The head is normocephalic and atraumatic. Conjunctivae are clear without exudates or hemorrhage. Sclera is non-icteric. EOM are intact. No signs of nystagmus. Eyelids are normal in appearance without swelling or lesions. Oral mucosa is pink and moist Neck: The neck is supple with normal range of motion. No JVD. Cardiac: Tachycardic Heart rate but regular rhythm. No murmurs, gallops, or rubs are auscultated. Respiratory: No signs of respiratory distress. Lung sounds are clear in all lobes bilaterally without rales, rhonchi, or wheezes. Abdominal: Abdomen is soft, non-tender without distention, guarding or rigidity. Bowel sounds are present and normoactive in all four quadrants. Extremities: Upper and lower extremities are atraumatic in appearance without deformity or edema. Neurological: The patient is awake, alert and oriented to person, place, and time with normal speech. Speech is clear. There is no facial asymmetry. Psychiatric: Appropriate mood and affect. Good judgement and insight. Chief Complaint: Shortness of Breath Time Seen by MD: 04:45 Primary Care Provider: KOURTNEY Allergies: Coded Allergies: Azithromycin (Verified Allergy, Unknown, 01/09/25) Penicillins (Verified Allergy, Unknown, 06/04/23) Tetracyclines & Related (Verified Allergy, Unknown, 01/09/25) Home Meds Active Scripts Ondansetron Odt 4MG Tab (ZOFRAN PO) 4 Mg Tb, 4 MG PO Q8HPRN PRN for 3 Days, #9 TAB ODT TAB-DISSOLVE IN MOUTH, THEN SWALLOW Prov:CHARLIE RANDOLPH DO 06/04/23 Reported Medications Atogepant (Qulipta) 10 Mg Tab, 10 MG PO, TAB 10/27/24 Pantoprazole Sodium Sesquihydr (Protonix) 40 Mg Tab, 40 MG PO DAILY, #30 TAB 10/27/24 Montelukast Sodium (MONTELUKAST SODIUM) 10 Mg Tab, 1 TAB PO DAILY, #30 TAB 5 Refills 10/27/24 Glipizide (Glipizide Er) 5 Mg Tab, 5 MG PO for 30 Days, MG 10/27/24 Atorvastatin Calcium (Lipitor) 40 Mg Tab, 1 TAB PO QPM, #90 TAB 1 Refill 10/27/24 Trospium Chloride (Trospium Chloride) 20 Mg Tab, 20 MG PO, TAB 10/27/24 Information Source: Patient, Spouse Mode of Arrival: Ambulatory Past Medical History PAST MEDICAL HISTORY: DM, HTN Surgical History: Hysterectomy PRODUCT INTRODUCTION MANAGER History: No Pertinent PRODUCT INTRODUCTION MANAGER History Family History Family History: Family hx of DM, Family hx of Cancer, Family hx of heart nelly Social History Smoker: Non-Smoker Alcohol: Denies ETOH Use Drugs: Denies Drug Use Lives In: Home Was a procedure done? Was a procedure done?: No EKG EKG : Pulse Rate (adult): 144 [place]: Normal Cardiac Rhythm: Junctional (Tachycardic) Block: None Hypertrophy: None Comments ST depression Differential Dx Considerations may include: Differential diagnoses considered includebut arenot limited to acute Bronchitis, Asthma, COPD, Pneumothorax, PE, CHF, Pulmonary HTN, Anemia, CO Poisoning, Methemoglobinemia, Hyperventilation, Metabolic Acidosis, Pulmonary Edema, Pneumonia, ACS, Pericardial Tamponade, Anxiety, other X-Ray, Labs, Meds, VS Vital Signs Date Time Temp Pulse Resp B/P (MAP) Pulse Ox O2 Delivery O2 Flow Rate FiO2 02/08/25 11:00 60 8 156/82 (106) 94 02/08/25 09:32 59 02/08/25 09:00 86 19 154/69 (97) 94 02/08/25 08:41 59 20 143/56 02/08/25 07:26 65 19 97 Room Air* 0 21 02/08/25 06:39 72 156/86 02/08/25 06:05 79 20 97 Room Air* 0 21 02/08/25 06:00 98.2 86 19 169/83 (111) 97 98.2 02/08/25 05:57 86 19 169/83 02/08/25 05:48 144 02/08/25 05:39 85 180/107 02/08/25 05:30 53 149/49 02/08/25 05:30 98.2 84 14 172/114 (133) 96 98.2 02/08/25 05:27 85 20 180/107 02/08/25 05:15 98.2 135 22 174/122 (139) 99 98.2 02/08/25 05:00 98.2 144 29 176/122 (140) 99 98.2 02/08/25 04:34 144 02/08/25 04:29 98.6 145 24 180/127 98 98.6 Lab Test 02/08/25 08:28 02/08/25 06:09 02/08/25 05:45 02/08/25 05:15 Range/Units Troponin I High Sensitivity 9 5 </=34 ng/L POC Glucose 213 H 70-106 mg/dl Urine Color Colorless Yellow Urine Clarity Clear Clear Urine pH 7.5 5.0-9.0 Urine Specific [place] 1.006 1.001-1.035 Urine Protein 1+ H Negative Urine Ketones Negative Negative Urine Blood Negative Negative /uL Urine Nitrite Negative Negative Urine Bilirubin Negative Negative Urine Urobilinogen Normal Negative mg/dL Urine Leukocyte Esterase Negative Negative /uL Urine RBC 3 0 - 4 /hpf Urine Microscopic WBC 1 0-5 /HPF Urine Squamous Epithelial Cells Few <5 /hpf Urine Bacteria None seen None Seen /hpf Urine Glucose 2+ H Normal mg/dL Test 02/08/25 05:06 Range/Units White Blood Count 8.1 4.4-10.8 10^3/uL Red Blood Count 5.16 4.0-5.20 10^6/uL Hemoglobin 14.1 12.2-16.2 g/dL Hematocrit 42.0 36.0-46.0 % Mean Corpuscular Volume 81.3 80.0-100.0 fL Mean Corpuscular Hemoglobin 27.3 L 28.0-32.0 pg Mean Corpuscular Hemoglobin Concent 33.6 32.0-36.0 g/dL Red Cell Distribution Width 13.4 11.8-14.3 % Platelet Count 361 140-450 10^3/uL Mean Platelet Volume 8.5 6.9-10.8 fL Neutrophils (%) (Auto) 71.0 37.0-80.0 % Lymphocytes (%) (Auto) 20.3 10.0-50.0 % Monocytes (%) (Auto) 7.6 0.0-12.0 % Eosinophils (%) (Auto) 0.7 0.0-7.0 % Basophils (%) (Auto) 0.4 0.0-2.0 % Neutrophils # (Auto) 5.8 1.6-8.6 10 ^3/uL Lymphocytes # (Auto) 1.7 0.4-5.4 10 ^3/uL Monocytes # (Auto) 0.6 0-1.3 10 ^3/uL Eosinophils # (Auto) 0.1 0-0.8 10 ^3/uL Basophils # (Auto) 0 0-0.2 10 ^3/uL Nucleated Red Blood Cells 0.1 % Sodium Level 142 136-145 mmol/L Potassium Level 3.3 L 3.5-5.1 mmol/L Chloride Level 104 98-107 mmol/L Carbon Dioxide Level 24 20-31 mmol/L Anion Gap 14 5-15 Blood Urea Nitrogen 15 9-23 mg/dL Creatinine 0.92 0.550-1.02 mg/dL Glomerular Filtration Rate Calc 70 >90 mL/min BUN/Creatinine Ratio 16.3 10.0-20.0 Serum Glucose 219 H 74-106 mg/dL Lactic Acid Level 1.5 0.4-2.0 mmol/L Calcium Level 9.8 8.7-10.4 mg/dL Troponin I High Sensitivity 5 </=34 ng/L B-Type Natriuretic Peptide 68.78 0-100 pg/mL Current Medications Medications (Trade) Dose Ordered Sig/Jayla Route Start Time Stop Time Status Last Admin Sodium Chloride 1,000 ml @ 1,000 mls/hr Q1H ONCE IV 02/08/25 05:00 02/08/25 05:59 DC 02/08/25 05:21 Metoprolol Tartrate (Lopressor) 5 mg ONCE ONCE IV 02/08/25 05:15 02/08/25 05:16 DC 02/08/25 05:39 Ondansetron HCl (Zofran) 4 mg ONCE ONCE IV 02/08/25 05:15 02/08/25 05:16 DC 02/08/25 05:39 Morphine Sulfate 2 mg ONCE ONCE IV 02/08/25 05:15 02/08/25 05:16 DC 02/08/25 05:27 Aspirin 325 mg ONCE ONCE PO 02/08/25 08:15 02/08/25 08:16 DC 02/08/25 08:33 Morphine Sulfate 4 mg ONCE ONCE IV 02/08/25 08:15 02/08/25 08:16 DC 02/08/25 08:41 Ondansetron HCl (Zofran) 4 mg ONCE ONCE IV 02/08/25 08:15 02/08/25 08:16 DC 02/08/25 08:33 Sodium Chloride 1,000 ml @ 125 mls/hr Q8H ONCE IV 02/08/25 11:00 02/08/25 18:59 DC 02/08/25 11:00 Potassium Chloride (Klor-Con Tablet) 40 meq ONCE ONCE PO 02/08/25 11:00 02/08/25 11:33 DC 02/08/25 11:52 Patient having ongoing chest pain. Reviewed the chart. She did have supraventricular tachycardia which got converted with a metoprolol. Completing sentences. She states that her shortness a breath has definitely got better. Significant other at bedside. Explained to the patient and significant other that with ongoing chest pain there is a risk that she can convert back to supraventricular tachycardia. She was given morphine. Was given Zofran. Was given nitro for her chest pain. Cardiology consultation. She does have risk factors for coronary artery disease. Unstable for transfer. Spoke with Giles [phone]. Time of 1ST Reevaluation: 08:10 Reevaluation 1ST: Unchanged Patient Education/Counseling: Treatment, Need For Follow Up Family Education/Counseling: No Family Present SEPSIS Sepsis Screen Date sepsis recognized/suspect: Feb 08, 2025 Time Sepsis recognized/suspect: 441 Recent Procedure: No On Antibiotic Therapy: No Respiratory Rate >20: No Heart Rate >90: No Temp<36 C (96.8 F) or >38.3 C: No SBP <90 or MAP <65 mmHG: No New Acute Mental Status Change: No Is the patient on CPAP, BIPAP,: No Physician Orders Chest Xray 1 View (02/08/25 04:41) Vital Signs Q1HR (02/08/25 04:41) Saline Lock (02/08/25 04:41) Facility Maintenance Mechanic (02/08/25 ) Electrocardigram (02/08/25 05:41) Electrocardigram (02/08/25 07:41) Blood Glucose Assessment (02/08/25 05:08) Blood Culture (02/08/25 05:28) Vital Signs Date Time Temp Pulse Resp B/P (MAP) Pulse Ox O2 Delivery O2 Flow Rate FiO2 02/08/25 11:00 60 8 156/82 (106) 94 02/08/25 09:32 59 02/08/25 09:00 86 19 154/69 (97) 94 02/08/25 08:41 59 20 143/56 02/08/25 07:26 65 19 97 Room Air* 0 21 02/08/25 06:39 72 156/86 02/08/25 06:05 79 20 97 Room Air* 0 21 02/08/25 06:00 98.2 86 19 169/83 (111) 97 98.2 02/08/25 05:57 86 19 169/83 02/08/25 05:48 144 02/08/25 05:39 85 180/107 02/08/25 05:30 53 149/49 02/08/25 05:30 98.2 84 14 172/114 (133) 96 98.2 02/08/25 05:27 85 20 180/107 02/08/25 05:15 98.2 135 22 174/122 (139) 99 98.2 02/08/25 05:00 98.2 144 29 176/122 (140) 99 98.2 02/08/25 04:34 144 02/08/25 04:29 98.6 145 24 180/127 98 98.6 Laboratory Tests Test 02/08/25 05:06 Lactic Acid Level 1.5 mmol/L (0.4-2.0) White Blood Count 8.1 10^3/uL (4.4-10.8) Medications Medications Dose Ordered Sig/Jayla Route Start Time Stop Time Status Last Admin Dose Admin Potassium Chloride 40 meq ONCE ONCE PO 02/08/25 11:00 02/08/25 11:33 DC 02/08/25 11:52 Sodium Chloride 1,000 ml @ 125 mls/hr Q8H ONCE IV 02/08/25 11:00 02/08/25 18:59 DC 02/08/25 11:00 Departure 1 Departure Time of Disposition: 06:07 Impression: Primary Impression: SVT (supraventricular tachycardia) Additional Impression: Hyperglycemia Disposition: ADMITTED INPATIENT Admit to: Med Surg Condition: Guarded Comments MDM: 64-year-old female SVT. Patient admitted to hospitalist service for further treatment, evaluation and monitoring. Extensive evaluation was performed in attempt to identify or rule out: (See differential diagnosis section) The following tests were ordered, and results were reviewed by me and discussed with patient: (See diagnostic results section) The following test were independently interpreted by me: EKG I reviewed and agreed with the following test results read by other providers: Chest x-ray Additional information was gathered from interviewing the following independent historians: Patient's significant other at bedside, EMS personnel Decision regarding hospitalization or escalation of hospital level of care: Risk and benefits of admission for further treatment of patient's condition was considered. Due to patient's current clinical condition, high risk of decline and poor outcome if discharged and need for further inpatient management and monitoring, patient will be admitted to the hospital. Drug therapy requiring intensive monitoring for toxicity: IV metoprolol Critical Care Note Critical Care Time?: Yes (90 min-critical care time only) Stability Stability form required: No Heart Score Heart Score: Heart Score Response (Comments) Value History Moderate Suspicious [address]-Deviation 2 Age 45-64 1 Risk Factors >3 or Hx ASHD 2 Troponin Normal limit 0 Total 6 I personally scribed for JAZMINE PAYAN MD ([email or web address]) on 02/08/25 at 05:48. Electronically submitted by Se Dave [email or web address]). JAZMINE PAYAN MD Feb 08, 2025 05:48 KELLEY BRAY MD Feb 08, 2025 08:10
[2025-02-08 05:51] LABS: Glucose 219 mg/dL (74-106)
[2025-02-08 06:05] VITALS: PULSE 79; RESP 20; O2SAT 97
[2025-02-08 06:27] LABS: Urine Protein, UAD 1+ (Negative)
[2025-02-08 07:26] VITALS: PULSE 65; RESP 19; O2SAT 97
--- NOTE | 2025-02-08 08:23 | ECG ---
[facility] Test Date: 2025-02-08 Test Time: 04:34:46 Pat Name: STEVIE STRICKLAND Department: [facility] ED Patient ID: [facility]-[id number] Room: 0295T Gender: F Cell Support Operator: JOE : 1960 Requested By: JAZMINE PAYAN Order Number: [id number] Reading MD: Zackery Lake Measurements Intervals [place] Rate: 144 P: 0 TX: 0 QRS: 81 QRSD: 91 T: -87 QT: 289 QTc: 448 Interpretive Statements Junctional tachycardia Borderline right axis deviation Probable LVH with secondary repol abnrm ST depression, consider ischemia, diffuse lds Electronically Signed On 02-10-2025 9:52:39 PDT by Zackery Lake Please click the below link to view image of tracing.
[2025-02-08] MEDS: MORPHINE SULFATE 4 MG/ML SYR/VIAL IV ONE (08:41)
[2025-02-08] MEDS: MORPHINE SULFATE 4 MG/ML SYR/VIAL ONE (08:41)
[2025-02-08] MEDS: NITROGLYCERIN 0.4 MG SL TAB SL ONE (09:00)
[2025-02-08] MEDS ORDERED: NITROGLYCERIN 0.4 MG SL TAB SL PRN (11:00)
[2025-02-08] MEDS: POTASSIUM CHL 20 Meq TABLET PO ONE ×2 (11:52→11:55)
[2025-02-08] MEDS: PANTOPRAZOLE 40 MG/10 ML VIAL INJ IV ONE ×2 (11:52→11:55)
--- NOTE | 2025-02-08 13:40 | DVHHPRES ---
History of Present Illness Resident Creating Document: CALI GREER RESIDENT History of Present Illness Patient is a 63-year-old female with a medical history of hypertension, diabetes mellitus, SVT, GERD, asthma, headaches presented to the ER with a chief complaint of chest pain and palpitations that started last night. Patient reports that yesterday in the afternoon she is started to have vomiting and vomited multiple times about 8-10 times with the vomitus containing undigested food initially brownish in color without any blood and later she was just vomiting up mucus. She then went to lay down and after a while it started to feel that her was beating fast and had diffuse abdominal pain following which EMS were called and the patient was brought to the ER for further evaluation. While in the ER patient continued to have dry heaving and was vomiting up little amount of mucus. Patient denied any diarrhea, blood in stool, fever, chills. Past medical history: Hypertension, non-insulin dependent diabetes mellitus, SVT, GERD, asthma Surgical history: No recent surgeries Social history: Patient lives with her and denies current smoking, alcohol, drug use Home medications: Losartan 25 mg twice daily, carvedilol 3.125 twice daily, clonidine patch, albuterol inhaler as needed, Protonix 40 mg daily, glipizide 5 mg daily Review of Systems Review of Systems Patient complains of diffuse abdominal pain scale of 8/10, and still complains of nausea Denies chills, headache Allergies: Coded Allergies: Azithromycin (Verified Allergy, Unknown, 01/09/25) Penicillins (Verified Allergy, Unknown, 06/04/23) Tetracyclines & Related (Verified Allergy, Unknown, 01/09/25) Medications Current Medications Medications Dose Ordered Sig/Jayla Route Start Time Stop Time Status Last Admin Dose Admin Nitroglycerin 0.4 mg Q5MINP PRN SL 02/08/25 11:00 Morphine Sulfate 2 mg Q30M PRN IV 02/08/25 11:00 Ondansetron HCl 4 mg Q6HPRN PRN IV 02/08/25 11:00 Enoxaparin Sodium 40 mg DAILY SC 02/09/25 10:00 Pantoprazole Sodium 40 mg DAILY IV 02/09/25 10:00 Exam Vital Signs Vital Signs Date Time Temp Pulse Resp B/P (MAP) Pulse Ox O2 Delivery O2 Flow Rate FiO2 02/08/25 09:32 59 02/08/25 09:00 19 154/69 (97) 94 02/08/25 07:26 Room Air* 0 21 02/08/25 06:00 98.2 98.2 Exam Gen - no pallor, no icterus, no edema . Skin - Patients skin is warm and dry. HEENT - normocephalic, atraumatic, dry mucous membranes. Neck - full ROM, no LAD, no JVD Pulmonary - B/L equal breath sounds, no crackles, no wheezing, no stridor. cardiovascular - regular S1,S2 heard, no added sounds, no murmurs heard. GI - soft, nontender abdomen. no hepatospleenomegaly. Bowel sounds normoactive Neurological - Patient is A/O X 3 . Bilateral upper extremity strength 5/5, bilateral lower extremity strength 5/5, no facial droop, normal speech, no tremor, no sensory deficiets. Labs/Xrays Labs Test 02/08/25 08:28 02/08/25 05:45 02/08/25 05:15 02/08/25 05:06 Range/Units Troponin I High Sensitivity 9 </=34 ng/L POC Glucose 213 H 70-106 mg/dl Urine Color Colorless Yellow Urine Clarity Clear Clear Urine pH 7.5 5.0-9.0 Urine Specific [place] 1.006 1.001-1.035 Urine Protein 1+ H Negative Urine Ketones Negative Negative Urine Blood Negative Negative /uL Urine Nitrite Negative Negative Urine Bilirubin Negative Negative Urine Urobilinogen Normal Negative mg/dL Urine Leukocyte Esterase Negative Negative /uL Urine RBC 3 0 - 4 /hpf Urine Microscopic WBC 1 0-5 /HPF Urine Squamous Epithelial Cells Few <5 /hpf Urine Bacteria None seen None Seen /hpf Urine Glucose 2+ H Normal mg/dL White Blood Count 8.1 4.4-10.8 10^3/uL Red Blood Count 5.16 4.0-5.20 10^6/uL Hemoglobin 14.1 12.2-16.2 g/dL Hematocrit 42.0 36.0-46.0 % Mean Corpuscular Volume 81.3 80.0-100.0 fL Mean Corpuscular Hemoglobin 27.3 L 28.0-32.0 pg Mean Corpuscular Hemoglobin Concent 33.6 32.0-36.0 g/dL Red Cell Distribution Width 13.4 11.8-14.3 % Platelet Count 361 140-450 10^3/uL Mean Platelet Volume 8.5 6.9-10.8 fL Neutrophils (%) (Auto) 71.0 37.0-80.0 % Lymphocytes (%) (Auto) 20.3 10.0-50.0 % Monocytes (%) (Auto) 7.6 0.0-12.0 % Eosinophils (%) (Auto) 0.7 0.0-7.0 % Basophils (%) (Auto) 0.4 0.0-2.0 % Neutrophils # (Auto) 5.8 1.6-8.6 10 ^3/uL Lymphocytes # (Auto) 1.7 0.4-5.4 10 ^3/uL Monocytes # (Auto) 0.6 0-1.3 10 ^3/uL Eosinophils # (Auto) 0.1 0-0.8 10 ^3/uL Basophils # (Auto) 0 0-0.2 10 ^3/uL Nucleated Red Blood Cells 0.1 % Sodium Level 142 136-145 mmol/L Potassium Level 3.3 L 3.5-5.1 mmol/L Chloride Level 104 98-107 mmol/L Carbon Dioxide Level 24 20-31 mmol/L Anion Gap 14 5-15 Blood Urea Nitrogen 15 9-23 mg/dL Creatinine 0.92 0.550-1.02 mg/dL Glomerular Filtration Rate Calc 70 >90 mL/min BUN/Creatinine Ratio 16.3 10.0-20.0 Serum Glucose 219 H 74-106 mg/dL Lactic Acid Level 1.5 0.4-2.0 mmol/L Calcium Level 9.8 8.7-10.4 mg/dL B-Type Natriuretic Peptide 68.78 0-100 pg/mL SEPSIS Sepsis Screen Date sepsis recognized/suspect: Feb 08, 2025 Time Sepsis recognized/suspect: 0500 Recent Procedure: No On Antibiotic Therapy: No Respiratory Rate >20: No Heart Rate >90: Yes Temp<36 C (96.8 F) or >38.3 C: No SBP <90 or MAP <65 mmHG: Yes New Acute Mental Status Change: No Is the patient on CPAP, BIPAP,: No Physician Orders Chest Xray 1 View (02/08/25 04:41) Vital Signs Q1HR (02/08/25 04:41) Saline Lock (02/08/25 04:41) Principal Bioinformatics Specialist (02/08/25 ) Electrocardigram (02/08/25 05:41) Electrocardigram (02/08/25 07:41) Blood Glucose Assessment (02/08/25 05:08) Blood Culture (02/08/25 05:28) Admit (02/08/25 11:00) Nitroglycerin Sublingual (Ntrostat Subli (02/08/25 11:00) Morphine Sulfate Injection (02/08/25 11:00) Oxygen By Nasal Cannula (02/08/25 11:00) Stat Ekg For Chest Pain (02/08/25 11:00) Notify Of Changes From Base (02/08/25 11:00) Crew Person For 24 Hours (02/08/25 11:00) Emergency Dysrhythmia Protocol (02/08/25 11:00) Rhythm Strips Once Every Shift (02/08/25 11:00) Sodium Chloride 0.9% (02/08/25 11:00) Ondansetron Hcl (Zofran) (02/08/25 11:00) Enoxaparin Sodium (Lovenox) (02/09/25 10:00) Cardiac Diet-2gna,Lofat,Lochol (02/08/25 Lunch) Code Status (02/08/25 11:13) Pantoprazole (Protonix) (02/09/25 10:00) Vital Signs Date Time Temp Pulse Resp B/P (MAP) Pulse Ox O2 Delivery O2 Flow Rate FiO2 02/08/25 09:32 59 02/08/25 09:00 86 19 154/69 (97) 94 02/08/25 08:41 59 20 143/56 02/08/25 07:26 65 19 97 Room Air* 0 21 02/08/25 06:39 72 156/86 02/08/25 06:05 79 20 97 Room Air* 0 21 02/08/25 06:00 98.2 86 19 169/83 (111) 97 98.2 02/08/25 05:57 86 19 169/83 02/08/25 05:48 144 02/08/25 05:39 85 180/107 02/08/25 05:30 98.2 84 14 172/114 (133) 96 98.2 02/08/25 05:27 85 20 180/107 02/08/25 05:15 98.2 135 22 174/122 (139) 99 98.2 02/08/25 05:00 98.2 144 29 176/122 (140) 99 98.2 Laboratory Tests Test 02/08/25 05:06 Lactic Acid Level 1.5 mmol/L (0.4-2.0) White Blood Count 8.1 10^3/uL (4.4-10.8) Medications Medications Dose Ordered Sig/Jayla Route Start Time Stop Time Status Last Admin Dose Admin Aspirin 325 mg ONCE ONCE PO 02/08/25 08:15 02/08/25 08:16 DC 02/08/25 08:33 325 MG Metoprolol Tartrate 5 mg ONCE ONCE IV 02/08/25 05:15 02/08/25 05:16 DC 02/08/25 05:39 5 MG Morphine Sulfate 2 mg ONCE ONCE IV 02/08/25 05:15 02/08/25 05:16 DC 02/08/25 05:27 2 MG Morphine Sulfate 4 mg ONCE ONCE IV 02/08/25 08:15 02/08/25 08:16 DC 02/08/25 08:41 4 MG Ondansetron HCl 4 mg ONCE ONCE IV 02/08/25 05:15 02/08/25 05:16 DC 02/08/25 05:39 4 MG Ondansetron HCl 4 mg ONCE ONCE IV 02/08/25 08:15 02/08/25 08:16 DC 02/08/25 08:33 4 MG Pantoprazole Sodium 40 mg ONCE ONCE IV 02/08/25 11:15 02/08/25 11:33 DC 02/08/25 11:52 40 MG Potassium Chloride 40 meq ONCE ONCE PO 02/08/25 11:00 02/08/25 11:33 DC 02/08/25 11:52 40 MEQ Sodium Chloride 1,000 ml @ 125 mls/hr Q8H ONCE IV 02/08/25 11:00 02/08/25 18:59 02/08/25 11:00 125 MLS/HR Sodium Chloride 1,000 ml @ 1,000 mls/hr Q1H ONCE IV 02/08/25 05:00 02/08/25 05:59 DC 02/08/25 05:21 1,000 MLS/HR Assessment/Plan Assessment/Plan Cardiovascular Supraventricular tachycardia, resolved h/o SVT in the past Hypertensive heart disease Left ventricular hypertrophy - initial ECG on arrival showed supraventricular tachycardia at a rate of about 150 per minute, following which patient was given IV metoprolol 5 mg and converted to sinus rhythm - IV fluids - at home patient is on losartan 25 mg b.i.d., carvedilol 3.125 b.i.d., clonidine patch, monitoring blood pressure - repeat ECG showed sinus rhythm without any acute ST or T-wave changes Gastrointestinal Intractable nausea vomiting Diffuse abdominal pain likely gastroenteritis - pending CT abdomen pelvis - IV fluids - IV Zofran and Protonix Endocrinology Dha-jqqqged-yqhettten type 2 diabetes mellitus - recent HbA1c 6.5% - as currently the patient is not tolerating food, we are holding off insulin DVT prophylaxis: Lovenox PUD prophylaxis: Protonix Goals of care discussed with the patient. Full code Time spent: 34 minutes Plan discussed with Dr. Cortes Plan discussed with: Patient My Orders Orders - CALI GREER RESIDENT Procedure Category Date Status Time Admit ADMIT 02/08/25 Transmitted 11:00 Nitroglycerin PHA 02/08/25 In Process Sublingual (Ntrostat 11:00 Morphine Sulfate PHA 02/08/25 In Process Injection 11:00 Oxygen By Nasal RT 02/08/25 Transmitted Cannula 11:00 Stat Ekg For Chest JULIAN 02/08/25 In Process Pain 11:00 Notify Md Of Changes JULIAN 02/08/25 In Process From Base 11:00 Crew Person For JULIAN 02/08/25 In Process 24 Hours 11:00 Emergency Dysrhythmia JULIAN 02/08/25 In Process Protocol 11:00 Rhythm Strips Once JULIAN 02/08/25 In Process Every Shift 11:00 Sodium Chloride 0.9% PHA 02/08/25 In Process 11:00 Ondansetron Hcl PHA 02/08/25 In Process (Zofran) 11:00 Enoxaparin Sodium PHA 02/09/25 In Process (Lovenox) 10:00 Cardiac DIET 02/08/25 Transmitted Diet-2gna,Lofat,Lochol Lunch Code Status CODE 02/08/25 Transmitted 11:13 Pantoprazole PHA 02/09/25 In Process (Protonix) 10:00 Date of Service: Feb 08, 2025 Billing Provider: STEVEN CORTES MD Common Visit Codes: [id number] INP/OBS CARE (HIGH) Secondary Visit Codes: [id number] CARE PLAN 30 MINUTES CALI GREER RESIDENT Feb 08, 2025 13:40
[2025-02-08] MEDS: POTASSIUM CHL 20MEQ/100ML 100 ML IV SCH (14:26)
[2025-02-08] MEDS: POTASSIUM CHL 20MEQ/100ML 100 ML IV ONE (14:28)
--- NOTE | 2025-02-08 17:43 | DVH ---
Indication: itractable N/V, diffuse abd pain Technique: CT axial images of the abdomen and pelvis are obtained without contrast. Coronal and sagit maverick reformats were obtained. Radiation Dose Information: CTDI volume is 15.21 mGy. Dose-length product is 3.92 mGy*cm Comparison: None FINDINGS: There is limited interpretation of the abdomen and pelvis without administration of intravenous contr ast. Lung bases bi basilar atelectasis. Adrenal glands, spleen, pancreas unremarkable in shape. Nodular morphology liver. No CT evidence for cholelithiasis. No hydronephrosis/ nephrolithiasis. Stomach partially distended. Small bowel loops are normal in caliber. Moderate volume stool in the colon. Colonic diverticular disease. Normal appendix. Abdominal aortic atherosclerotic disease. Bladder is partially distended. No free pelvic fluid. No in guinal lymphadenopathy. Wfau-mc-vcsuekne thoracolumbar degenerative disc disease. IMPRESSION: Limited evaluation without contrast. Colonic diverticular disease. Nodular morphology of the liver may which may represent cirrhosis. Previous CT demonstrated multiple hypoenhancing lesions which are not well characterized on noncontrast CT. Recommend multiphasic MRI abdomen to evaluate exclude any type of liver neoplasm
--- NOTE | 2025-02-08 19:59 | DVH ---
CLINICAL HISTORY: RUQ pain, intractable N/V TECHNIQUE: Transabdominal sonogram was performed of the right upper quadrant. COMPARISON: None FINDINGS: The liver is normal in echogenicity. There is no focal parenchymal abnormality. No intrahepatic bili ale ductal dilatation is present. The liver measures 16.7 cm. The gallbladder is normal with no evidence for stones or wall thickening. The common bile duct is normal in caliber, measuring 4 mm. The partially visualized pancreas is grossly unremarkable. The right kidney is normal in echogenicity and measures 9.1 cm in length. There is no evidence for hy dronephrosis or calculi. IMPRESSION: NO SIGNIFICANT SONOGRAPHIC ABNORMALITY OF THE IMAGED RIGHT UPPER QUADRANT.
[2025-02-08 21:50] VITALS: BP 188/94; PULSE 60; RESP 20; TEMP 97.7; O2SAT 95
[2025-02-08 22:29] LABS: Amphetamine Screen, Urine Neg (NEGATIVE); Barbiturate Scree,Urine Neg (NEGATIVE); Benzodiazephine Screen, Urine Neg (NEGATIVE); Cannabinoid Screen, Urine Neg (NEGATIVE); Cocaine Screen, Urine Neg (NEGATIVE); Opiate Scree,Urine Neg (NEGATIVE); Phencyclidine Screen, Urine Neg (NEGATIVE)
[2025-02-08] MEDS: hydrALAZINE HCL 20 MG/ML VL IV PRN (22:57)
[2025-02-08 23:41] VITALS: BP 188/94; PULSE 60; RESP 20; TEMP 97.7; O2SAT 95
[2025-02-09] VITALS (9 sets, daily range): BP systolic 143–183; BP diastolic 83–96; PULSE 57–81; RESP 16–20; TEMP 97.5–97.9; O2SAT 97–98
[2025-02-09] MEDS: HYDROcodone-ACET 5/325MG TAB PO ONE ×2 (00:45)
--- NOTE | 2025-02-09 06:39 | ECG ---
[facility] Test Date: 2025-02-08 Test Time: 11:09:53 Pat Name: STEVIE STRICKLAND Department: Room: 0295T A Gender: F Health Technician: GRACE : 1960 Requested By: JAZMINE PAYAN Order Number: [id number] Reading MD: Zackery Lake Measurements Intervals [place] Rate: 52 P: 58 [place]: 168 QRS: 71 QRSD: 108 T: 52 QT: 472 QTc: 439 Interpretive Statements Sinus rhythm Electronically Signed On 02-10-2025 9:53:39 PDT by Zackery Lake Please click the below link to view image of tracing.
[2025-02-09 07:00] LABS: Hematocrit 38.3 % (36.0-46.0); Hemoglobin 12.5 g/dL (12.2-16.2); Mean Corpuscular Hemoglobin 26.9 pg (28.0-32.0); Mean Corpuscular Volume 82.2 fL (80.0-100.0); Nucleated Red Blood Cells % 0.0 %
[2025-02-09 07:14] LABS: Alanine Aminotransferase 22 U/L (7-40); Albumin 4.1 g/dL (3.2-4.8); Alkaline Phosphatase 84 U/L (46-116); Anion Gap 10 (5-15); BUN/Creatinine Ratio 14.6 (10.0-20.0); Bilirubin, Total 0.5 mg/dL (0.2-1.0); Blood Urea Nitrogen 12 mg/dL (9-23); Calcium 8.8 mg/dL (8.7-10.4); Carbon Dioxide 26 mmol/L (20-31); Chloride 106 mmol/L (98-107); Magnesium 1.8 mg/dL (1.6-2.6); Sodium 142 mmol/L (136-145); Total Protein 7.1 g/dL (5.7-8.2)
[2025-02-09 07:20] LABS: Glucose 134 mg/dL (74-106); Potassium 3.3 mmol/L (3.5-5.1)
[2025-02-09] MEDS: ACETAMINOPHEN 325 MG TAB PO ONE (10:39)
[2025-02-09] MEDS: PANTOPRAZOLE 40 MG/10 ML VIAL INJ IV SCH (10:39)
[2025-02-09] MEDS: ENOXAPARIN SOD 40 MG/0.4 ML SYRINGE SC SCH (10:40)
[2025-02-09] MEDS ORDERED: DEXTROSE (50%) 50ML SYRG IV PRN (12:45)
[2025-02-09] MEDS ORDERED: POTASSIUM CHL 20 Meq TABLET PO ONE (12:45)
[2025-02-09] MEDS: LORazepam 2MG/ML-1ML VIAL IV ONE (12:45)
--- NOTE | 2025-02-09 12:49 | DVHPN2 ---
Progress Note Date Seen: Feb 09, 2025 Medical Necessity Reason Pt with a Central, PICC or Fol: No Subjective Patient reports: No new complaints Review of Systems: HEENT:Normal, CVS:Normal, RESPIRATORY:Normal, GI:Normal, :Normal, MSK:Normal, NEURO:Normal Objective vital signs Vital Sign Date Time Temp Pulse Resp B/P (MAP) Pulse Ox O2 Delivery O2 Flow Rate FiO2 02/09/25 12:45 172/102 02/09/25 08:30 97.5 65 20 97 97.5 02/08/25 07:26 Room Air* 0 21 Total Intake and Output 02/08/25 02/08/25 02/09/25 15:00 23:00 07:00 Intake Total 200 ml Balance 200 ml medications Current Medications Medications Dose Ordered Sig/Jayla Route Start Time Stop Time Status Last Admin Dose Admin Nitroglycerin 0.4 mg Q5MINP PRN SL 02/08/25 11:00 Morphine Sulfate 2 mg Q30M PRN IV 02/08/25 11:00 Ondansetron HCl 4 mg Q6HPRN PRN IV 02/08/25 11:00 Pantoprazole Sodium 40 mg DAILY IV 02/09/25 10:00 02/09/25 10:39 40 MG Hydralazine HCl 10 mg Q6HP PRN IV 02/08/25 19:00 02/09/25 12:45 10 MG Montelukast Sodium 10 mg HS PO 02/09/25 22:00 UNV Examination: GENERAL:Normal, HEENT:Normal, NECK:Normal, NECK:Abnormal (goiter), LUNGS:Normal, CVS:Normal, ABDOMEN:Normal, MSK:Normal, SKIN:Normal, NEURO:Normal, :Normal laboratory and microbiology Laboratory Tests 02/09/25 05:57 Test 02/09/25 05:57 Range/Units Serum Glucose 134 H 74-106 mg/dL Microbiology Date/Time Source Procedure Growth Status 02/08/25 06:09 Blood Blood Culture - Preliminary NO GROWTH AFTER 24 HOURS OF INCUBATION. Resulted Problem List/Assessment/Plan Problem List/Assessment/Plan #1 abd pain/vomiting #2 hypertensive emergency: cont meds #3 svt: cardio eval #4 ?liver cirrhosis/liver lesions: mri abdomen #5 dm: ssi #6 ?goiter: usg of thyroid #7 obesity advance care planning- full code- time spent 18 mins unstable for transfer Plan discussed with: Patient My Orders My Orders Orders - BONI CHEN MD Procedure Category Date Status Time * Cardiology Consult CONS 02/09/25 Transmitted 12:40 Montelukast Tablet PHA 02/09/25 Transmitted (Singulair Tablet) 22:00 Mri Abd & Plevis W/Wo MRI 02/09/25 Transmitted Cont 12:40 Thyroid US 02/09/25 Transmitted 12:40 Lorazepam 2mg/Ml Inj PHA 02/09/25 Transmitted (Ativan Inj) 12:45 Hydrocodone-Acet PHA 02/09/25 Transmitted 5/325mg Tab (Clare 12:45 Acetaminophen Tablet PHA 02/09/25 Transmitted (Tylenol Tablet) 12:45 Clonidine Hcl Tablet PHA 02/09/25 Transmitted (Catapres Tablet) 12:45 Clonidine Hcl Tablet PHA 02/09/25 Transmitted (Catapres Tablet) 22:00 Potassium Er Tablet PHA 02/09/25 Transmitted (Klor-Con Tablet) 12:45 Basic Metabolic Panel LAB 02/10/25 Verified 06:00 Magnesium LAB 02/10/25 Verified 05:00 Glucose Blood PHA 02/09/25 Transmitted (Accu-Chek Comfort 17:00 Mild Sliding Scale PHA 02/09/25 Transmitted 17:00 Dextrose 50% Syringe PHA 02/09/25 Transmitted 12:45 Date of Service: Feb 09, 2025 Billing Provider: BONI CHEN MD Common Visit Codes: [id number] INP/OBS CARE(HIGH) Secondary Visit Codes: [id number] CARE PLAN 30 MINUTES BONI CHEN MD Feb 09, 2025 12:49
--- NOTE | 2025-02-09 14:08 | DVH ---
ULTRASOUND SOFT TISSUE HEAD AND NECK CLINICAL INDICATION: goiter TECHNIQUE: Multiple real time sonographic images of the thyroid were obtained. COMPARISON: Prior exam dated none FINDINGS: The right thyroid gland measures 5.0 x 2.7 x 2.6 cm. The left thyroid gland measures approximately 4.8 x 2.3 x 2.1 cm. The isthmus measures 0.7 cm. The thyroid gland is diffusely heterogeneous. Evaluation for discrete thyroid nodule is limited given heterogeneity of the thyroid gland. IMPRESSION: Heterogeneous and enlarged thyroid gland. Evaluation for discrete thyroid nodule is limited given het erogeneity of the thyroid gland. [employer] TI-RADS Categories and Recommendations (2017): TR1: 0 points, Benign, No FNA TR2: 2 points, Not suspicious, No FNA TR3: 3 points, Mildly suspicious, FNA if > or = 2.5 cm, Follow if > or = 1.5 cm TR4: 4-6 points, Moderately Suspicious, FNA if > or = 1.5 cm, Follow if > or = 1.0 cm TR5: 7+ points, Highly Suspicious, FNA if > or = 1.0 cm, Follow if > or = 0.5 cm Follow-up ultrasound guidelines: TR5: yearly for 5 years, if no growth or change in TI-RADS level TR4: at 1, 2, 3 and 5 years, if no growth or change in TI-RADS level TR3: at 1, 3 and 5 years, if no growth or change in TI-RADS level If increased but below threshold for FNA, repeat in one year. Source: ACR Thyroid Imaging, Reporting and Data System (TI-RADS): White Paper of the ACR TI-RADS Committee. Jg et al., J Am Thong Radiol 2017;14:587-595.
[2025-02-09] MEDS: ACETAMINOPHEN 325 MG TAB PO PRN (16:39)
[2025-02-09] MEDS: InsuLIN REG 1unit/0.01ml Soln (100units/ml) SC SCH (16:40)
[2025-02-09] MEDS: ACCU-CHEK COMFORT CURVE STRIP VI SCH (16:40)
[2025-02-09] MEDS: GADOTERATE MEG 10 MMOL/20ml INJ (0.5MMOL/ml) IV ONE (17:21)
[2025-02-09] MEDS: POTASSIUM EFFERVESENT TAB 25 MEQ PO ONE ×2 (18:11→19:43)
[2025-02-09] MEDS: MAGNESIUM SULFATE 1GM/100ML 100 ML IV ONE (18:46)
--- NOTE | 2025-02-09 19:37 | DVHINCON2 ---
Date Seen: Feb 09, 2025 Referring Physician MD Knvg Reason for Consultation ?SVT History of Present Illness This is a pleasant 64-year-old female who presented to emergency room with a chief complaint of palpitations. The patient reports she developed a sudden onset of palpitations associated with right arm numbness, nausea, vomiting, and diaphoresis prompting her to seek further medical attention. Upon arrival to the emergency room she underwent a 12 lead electrocardiogram revealing a supraventricular tachycardia rhythm at 144 bpm. At that time, she was medicated with IVF x1 L bolus and metoprolol tartrate 5 mg IV with a successful transition into a sinus rhythm. The patient reports undergoing a cardiology/EP evaluation at [facility] where she underwent an event monitor for 2-3 weeks and was recommended to undergo a cardiac ablation for which the patient declined in October/2024. Since then, the patient has not followed up with cardiology/EP. Home medications include Coreg 3.125 BID. Significant medical history includes supraventricular tachycardia, hypertension, ulf-izjmuwn-gcnwmehjl diabetes mellitus, GERD, and obesity. Past Medical History Past medical history reviewed. No other significant than mentioned above. Past Surgical History Hysterectomy Family History: Asthma G8 MOTHER Chronic obstructive pulmonary disease G8 MOTHER Diabetes mellitus G8 MOTHER Family History Family history reviewed. Social History Denies the use of illicit drugs, alcohol, or tobacco use. Allergies: Coded Allergies: Coffee Flavoring Agent (non-screeni (Verified Allergy, Severe, convulsions, 02/09/25) Azithromycin (Verified Allergy, Unknown, 01/09/25) Penicillins (Verified Allergy, Unknown, 06/04/23) Tetracyclines & Related (Verified Allergy, Unknown, 01/09/25) Home Meds Active Scripts Ondansetron Odt 4MG Tab (ZOFRAN PO) 4 Mg Tb, 4 MG PO Q8HPRN PRN for 3 Days, #9 TAB ODT TAB-DISSOLVE IN MOUTH, THEN SWALLOW Prov:CHARLIE RANDOLPH DO 06/04/23 Reported Medications Atogepant (Qulipta) 10 Mg Tab, 10 MG PO, TAB 10/27/24 Pantoprazole Sodium Sesquihydr (Protonix) 40 Mg Tab, 40 MG PO DAILY, #30 TAB 10/27/24 Montelukast Sodium (MONTELUKAST SODIUM) 10 Mg Tab, 1 TAB PO DAILY, #30 TAB 5 Refills 10/27/24 Glipizide (Glipizide Er) 5 Mg Tab, 5 MG PO for 30 Days, MG 10/27/24 Atorvastatin Calcium (Lipitor) 40 Mg Tab, 1 TAB PO QPM, #90 TAB 1 Refill 10/27/24 Trospium Chloride (Trospium Chloride) 20 Mg Tab, 20 MG PO, TAB 10/27/24 Home Meds Home medications reviewed. Current Medications Current Medications Medications (Trade) Dose Ordered Sig/Jayla Route PRN Reason Start Time Stop Time Status Last Admin Enoxaparin Sodium (Lovenox) 40 mg DAILY SC 02/09/25 10:00 02/09/25 12:46 DC 02/09/25 10:40 Pantoprazole Sodium (Protonix) 40 mg DAILY IV 02/09/25 10:00 02/09/25 10:39 Montelukast Sodium (Singulair Tablet) 10 mg HS PO 02/09/25 22:00 Acetaminophen/ Hydrocodone Bitart ([place] 5/325MG Tab) 1 tab Q6HPRN PRN PO MODERATE PAIN (4-6 PAIN SCALE) 02/09/25 12:45 Acetaminophen (Tylenol Tablet) 650 mg Q6HP PRN PO MILD PAIN (1-3 PAIN SCALE) 02/09/25 12:45 02/09/25 16:39 Clonidine HCl (Catapres Tablet) 0.1 mg BID PO 02/09/25 22:00 Diagnostic Test (Pha) (Accu-Chek Comfort Curve T) 1 strip ACHS 02/09/25 17:00 02/09/25 16:40 Insulin Human Regular (InsuLIN R) ACHS SC 02/09/25 17:00 Dextrose 50 ml UD PRN IV Blood Sugar LESS THAN 60 02/09/25 12:45 Review of Systems Constitutional: Diaphoresis Ears, Nose, & Throat: No symptom reported Eyes: No symptom reported Neurological: No symptoms reported Pulmonary/Respiratory: No symptom reported Cardiovascular: Palpitations Gastrointestinal: Nausea, vomiting Genitourinary: No symptom reported Musculoskeletal: No symptom reported Skin: No symptom reported Psychiatric: No symptom reported Endocrine: No symptom reported Hemotologic/Lymphatic: No symptom reported Vital Signs Vital Signs Date Time Temp Pulse Resp B/P (MAP) Pulse Ox O2 Delivery O2 Flow Rate FiO2 02/09/25 18:20 143/86 (105) 02/09/25 16:52 97.6 76 16 98 97.6 02/09/25 08:00 Room Air* 0 21 Physical Exam General Appearance: Cooperative. Well developed. Obese. In no acute distress Head Exam: Normal inspection Neck Exam: Normal inspection. Non-tender. Normal alignment Pulmonary/Respiratory: Chest non-tender. Clear bilateral breath sounds Cardiovascular/Chest: Regular rate and rhythm. S1, S2. Sinus rhythm. No murmurs. No JVD. Peripheral Pulses: 2+ Radial (R). 2+ Radial (L). 2+ Pedal (R). 2+ Pedal (L) Abdominal Exam: Normal bowel sounds. Soft. Ankle Exam: Negative ankle edema Lower extremities: Negative lower extremity edema Neuro/Mental Status: A&O x4. Coherent Thoughts/Psych: Normal thought pattern. Appropriate mood and affect. Good judgement and insight Appearance: In no acute distress Skin Exam: Normal inspection. Normal color. Warm. Dry Labs/Diagnostic Data Labs Test 02/09/25 16:22 02/09/25 05:57 02/08/25 08:28 02/08/25 05:15 Range/Units POC Glucose 128 H 70-106 mg/dl White Blood Count 6.3 4.4-10.8 10^3/uL Red Blood Count 4.65 4.0-5.20 10^6/uL Hemoglobin 12.5 12.2-16.2 g/dL Hematocrit 38.3 36.0-46.0 % Mean Corpuscular Volume 82.2 80.0-100.0 fL Mean Corpuscular Hemoglobin 26.9 L 28.0-32.0 pg Mean Corpuscular Hemoglobin Concent 32.7 32.0-36.0 g/dL Red Cell Distribution Width 13.7 11.8-14.3 % Platelet Count 303 140-450 10^3/uL Mean Platelet Volume 8.5 6.9-10.8 fL Neutrophils (%) (Auto) 69.5 37.0-80.0 % Lymphocytes (%) (Auto) 21.0 10.0-50.0 % Monocytes (%) (Auto) 8.0 0.0-12.0 % Eosinophils (%) (Auto) 0.9 0.0-7.0 % Basophils (%) (Auto) 0.6 0.0-2.0 % Neutrophils # (Auto) 4.4 1.6-8.6 10 ^3/uL Lymphocytes # (Auto) 1.3 0.4-5.4 10 ^3/uL Monocytes # (Auto) 0.5 0-1.3 10 ^3/uL Eosinophils # (Auto) 0.1 0-0.8 10 ^3/uL Basophils # (Auto) 0 0-0.2 10 ^3/uL Nucleated Red Blood Cells 0.0 % Sodium Level 142 136-145 mmol/L Potassium Level 3.3 L 3.5-5.1 mmol/L Chloride Level 106 98-107 mmol/L Carbon Dioxide Level 26 20-31 mmol/L Anion Gap 10 5-15 Blood Urea Nitrogen 12 9-23 mg/dL Creatinine 0.82 0.550-1.02 mg/dL Glomerular Filtration Rate Calc 81 >90 mL/min BUN/Creatinine Ratio 14.6 10.0-20.0 Serum Glucose 134 H 74-106 mg/dL Calcium Level 8.8 8.7-10.4 mg/dL Magnesium Level 1.8 1.6-2.6 mg/dL Total Bilirubin 0.5 0.2-1.0 mg/dL Aspartate Amino Transferase (AST) 14 13-40 U/L Alanine Aminotransferase (ALT) 22 7-40 U/L Alkaline Phosphatase 84 46-116 U/L Total Protein 7.1 5.7-8.2 g/dL Albumin 4.1 3.2-4.8 g/dL Troponin I High Sensitivity 9 </=34 ng/L Urine Color Colorless Yellow Urine Clarity Clear Clear Urine pH 7.5 5.0-9.0 Urine Specific [place] 1.006 1.001-1.035 Urine Protein 1+ H Negative Urine Ketones Negative Negative Urine Blood Negative Negative /uL Urine Nitrite Negative Negative Urine Bilirubin Negative Negative Urine Urobilinogen Normal Negative mg/dL Urine Leukocyte Esterase Negative Negative /uL Urine RBC 3 0 - 4 /hpf Urine Microscopic WBC 1 0-5 /HPF Urine Squamous Epithelial Cells Few <5 /hpf Urine Bacteria None seen None Seen /hpf Urine Glucose 2+ H Normal mg/dL Urine Opiates Screen Neg NEGATIVE Urine Fentanyl Screen Neg NEGATIVE Urine Barbiturates Screen Neg NEGATIVE Urine Phencyclidine Screen Neg NEGATIVE Urine Amphetamines Screen Neg NEGATIVE Urine Benzodiazepines Screen Neg NEGATIVE Urine Cocaine Screen Neg NEGATIVE Urine Cannabinoids Screen Neg NEGATIVE Test 02/08/25 05:06 Range/Units Lactic Acid Level 1.5 0.4-2.0 mmol/L B-Type Natriuretic Peptide 68.78 0-100 pg/mL Microbiology Date/Time Source Procedure Growth Status 02/08/25 06:09 Blood Blood Culture - Preliminary NO GROWTH AFTER 24 HOURS OF INCUBATION. Resulted Assessment Supraventricular tachycardia status post chemical cardioversion Hypertensive urgency Hypokalemia/hypomagnesemia Qcl-icqmkwx-xjwrtdvum diabetes mellitus Goiter rule out thyroid disease Obesity Plan/Recommendation (Dr. Acevedo) The patient presented with a supraventricular tachycardia rhythm with successful chemical cardioversion with metoprolol IV. Given recurrent SVT events, initiate low-dose metoprolol XL and low-dose flecainide with parameters to hold for a HR < 60 bpm. Replete electrolytes as necessary, potassium over four and magnesium over two. A recent transthoracic echocardiogram from 10/26/2024 revealed a LVEF of 55%. The patient underwent recent workup with [facility] including an event monitor for 2-3 weeks with recommendations for a cardiac ablation which the patient declined back in October/2024. She was strongly advised to proceed with aforementioned recommendations. Follow-up with [place] within 1-2 weeks post discharge. Kindly recall if in need of further recommendations. Thank you for allowing us to participate in this patient's care. Please call if you have any questions or concerns. This medical document was created using an electronic medical record system with voice recognition software and computerized dictation system. Although this document has been carefully reviewed, there might still be some phonetic and typographical errors. Occasional wrong-word or ``sound-alike substitutions may have occurred due to the inherent limitations of voice recognition software. These areas are purely typographical due to imperfections of the software programs and do not reflect any compromise in the patient's medical care. Please read the chart carefully and recognize, using context, where these substitutions have occurred. Plan discussed with: Patient, Other NYHA Physical activity limitations: NA Date of Service: Feb 09, 2025 Billing Provider: MAMI FARRELL Cardiology Common Codes: [id number] INP/OBS CARE (Mod) MAMI FARRELL Feb 09, 2025 19:37
--- NOTE | 2025-02-09 20:57 | DVH ---
EXAM: MRI MRI ABDOMEN W AND WO HISTORY: abnormal ct COMPARISON: None TECHNIQUE: Multiplanar, multisequence imaging of the abdomen was performed with and without contrast. FINDINGS: [LOWER CHEST]: Trace bilateral pleural fluid [LIVER]: The appearance of small T2 hyperintense lesions with peripheral discontinuous nodular enhanc ement in the liver likely compatible with cavernous hemangiomas. [SPLEEN]: Unremarkable. [PANCREAS]: The pancreas is normal in appearance without focal lesions. Normal pancreatic duct size. [GALLBLADDER AND DUCTS]: Gallbladder is normal in appearance. The cystic duct, right and left hepatic ducts, common hepatic duct, and common bile ducts are unremarkable. [ADRENAL GLANDS]: Unremarkable. [KIDNEYS]: Normal enhancement without suspicious lesions or hydronephrosis. Non enhancing bilateral k idney cysts. [VISUALIZED BOWEL]: Grossly unremarkable. [VASCULATURE]: Unremarkable. [LYMPHADENOPATHY]: No evidence for lymphadenopathy. [ASCITES]: Absent. [MUSCULOSKELETAL]: Bone marrow signal is normal. [OTHER]: None IMPRESSION: 1. No acute findings. 2. Small T2 hyperintense lesions with peripheral discontinuous nodular enhancement in the liver likel y compatible with cavernous hemangiomas.
[2025-02-09] MEDS: MONTELUKAST SODIUM 10 MG TAB PO SCH (22:23)
[2025-02-09] MEDS: FLECAINIDE ACETATE 50 MG TAB PO SCH (22:23)
[2025-02-10] VITALS (8 sets, daily range): BP systolic 126–164; BP diastolic 71–98; PULSE 52–76; RESP 17–52; TEMP 97.5–97.7; O2SAT 96–98
[2025-02-10 07:54] LABS: Anion Gap 11 (5-15); Carbon Dioxide 25 mmol/L (20-31); Chloride 105 mmol/L (98-107); Sodium 141 mmol/L (136-145)
[2025-02-10 07:56] LABS: Calcium 8.9 mg/dL (8.7-10.4)
[2025-02-10 08:01] LABS: BUN/Creatinine Ratio 18.0 (10.0-20.0); Blood Urea Nitrogen 16 mg/dL (9-23); Magnesium 2.1 mg/dL (1.6-2.6)
[2025-02-10 08:02] LABS: Glucose 130 mg/dL (74-106); Potassium 3.4 mmol/L (3.5-5.1)
[2025-02-10] MEDS: MORPHINE SULFATE INJ 2 MG/ml SYRG IV PRN (08:15)
[2025-02-10] MEDS: ONDANSETRON HCL 4 MG/2 ML VIAL IV PRN (08:26)
[2025-02-10] MEDS: HYDROcodone-ACET 5/325MG TAB PO PRN (10:38)
[2025-02-10] MEDS: METOPROLOL SUCCINATE XL 50 MG TAB PO SCH (10:39)
--- NOTE | 2025-02-10 11:02 | ECG ---
[facility] Test Date: 2025-02-10 Test Time: 08:03:44 Pat Name: STEVIE STRICKLAND Department: Respiratoy Room: 0295T A Gender: F Ladies Attendant: : 1960 Requested By: BONI CHEN Order Number: [id number] Reading MD: Zackery Lake Measurements Intervals [place] Rate: 61 P: 51 [place]: 160 QRS: 51 QRSD: 104 T: 51 QT: 438 QTc: 442 Interpretive Statements Sinus rhythm Electronically Signed On 02-10-2025 16:58:57 PDT by Zackery Lake Please click the below link to view image of tracing.
--- NOTE | 2025-02-10 13:42 | DVHPN2 ---
Progress Note Date Seen: Feb 10, 2025 Medical Necessity Reason Pt with a Central, PICC or Fol: No Subjective Patient reports: No new complaints Review of Systems: HEENT:Normal, CVS:Normal, RESPIRATORY:Normal, GI:Normal, :Normal, MSK:Normal, NEURO:Normal Objective vital signs Vital Sign Date Time Temp Pulse Resp B/P (MAP) Pulse Ox O2 Delivery O2 Flow Rate FiO2 02/10/25 11:38 159/98 02/10/25 10:39 62 02/10/25 09:00 97.5 18 97 97.5 02/10/25 08:00 Room Air* 0 21 Total Intake and Output 02/09/25 02/09/25 02/10/25 15:00 23:00 07:00 Intake Total 2900 ml 400 ml Balance 2900 ml 400 ml medications Current Medications Medications Dose Ordered Sig/Jayla Route Start Time Stop Time Status Last Admin Dose Admin Nitroglycerin 0.4 mg Q5MINP PRN SL 02/08/25 11:00 Morphine Sulfate 2 mg Q30M PRN IV 02/08/25 11:00 02/10/25 08:15 2 MG Ondansetron HCl 4 mg Q6HPRN PRN IV 02/08/25 11:00 02/10/25 08:26 4 MG Pantoprazole Sodium 40 mg DAILY IV 02/09/25 10:00 02/10/25 10:36 40 MG Hydralazine HCl 10 mg Q6HP PRN IV 02/08/25 19:00 02/10/25 04:40 10 MG Montelukast Sodium 10 mg HS PO 02/09/25 22:00 02/09/25 22:23 10 MG Acetaminophen/ Hydrocodone Bitart 1 tab Q6HPRN PRN PO 02/09/25 12:45 02/10/25 10:38 1 TAB Acetaminophen 650 mg Q6HP PRN PO 02/09/25 12:45 02/09/25 16:39 650 MG Clonidine HCl 0.1 mg BID PO 02/09/25 22:00 02/10/25 10:38 0.1 MG Diagnostic Test (Pha) 1 strip ACHS 02/09/25 17:00 02/10/25 12:26 1 STRIP Insulin Human Regular ACHS SC 02/09/25 17:00 02/10/25 12:27 2 UNITS Dextrose 50 ml UD PRN IV 02/09/25 12:45 Metoprolol Succinate 25 mg DAILY PO 02/10/25 10:00 02/10/25 10:39 25 MG Flecainide Acetate 50 mg Q12HR PO 02/09/25 22:00 02/10/25 10:36 50 MG Examination: GENERAL:Normal, HEENT:Normal, NECK:Normal, LUNGS:Normal, CVS:Normal, ABDOMEN:Normal, MSK:Normal, SKIN:Normal, NEURO:Normal, :Normal laboratory and microbiology Laboratory Tests 02/10/25 07:12 02/09/25 05:57 Test 02/10/25 07:12 Range/Units Serum Glucose 130 H 74-106 mg/dL Microbiology Date/Time Source Procedure Growth Status 02/08/25 06:09 Blood Blood Culture - Preliminary NO GROWTH AFTER 48 HOURS OF INCUBATION. Resulted Problem List/Assessment/Plan Problem List/Assessment/Plan #1 abd pain/vomiting #2 hypertensive emergency: cont meds #3 svt: cardio eval #4 ?liver cirrhosis/liver lesions: mri abdomen #5 dm: ssi #6 goiter: ct neck #7 obesity advance care planning- full code- time spent 18 mins unstable for transfer Plan discussed with: Patient, Daughter My Orders My Orders Orders - BONI CHEN MD Procedure Category Date Status Time Neck Without Contrast CT 02/10/25 Transmitted 13:37 Potassium Chl Simon PHA 02/10/25 Transmitted KCL 13:45 Basic Metabolic Panel LAB 02/11/25 Verified 06:00 Thyroid Stimulating LAB 02/11/25 Verified Hormone 05:00 Free T3 LAB 02/11/25 Verified 06:00 Free T4 (Free LAB 02/11/25 Verified Thyroxine) 06:00 Date of Service: Feb 10, 2025 Billing Provider: BONI CHEN MD Common Visit Codes: [id number] INP/OBS CARE(HIGH) BONI CHEN MD Feb 10, 2025 13:42
--- NOTE | 2025-02-10 15:04 | DVH ---
_ Procedure: CT NECK WITHOUT CONTRAST Study Date and Requested Time: 2024 01:49 PM History: retrosternal thyroid Comparison: Thyroid ultrasound 02/09/2025 Dose: CTDI: 25.73 mGy DLP: 707.26 mGycm Technique: Multiplanar images obtained through the neck without contrast Findings: Nasopharynx, oropharynx, hypopharynx, and larynx normal in caliber without evidence of focal mass. Fatty atrophy of the right inferior submandibular gland. Otherwise, Parotid, submandibular, and subl ingual glands within normal limits. Tongue within normal limits. Cervical soft tissues within normal limits with no evidence of significant cervical lymphadenopathy. Enlarged heterogeneous thyroid gland with focus of calcification within the right thyroid lobe. 3.1 x 2.3 x 4.2 cm right thyroid lobe nodule with subtle 2 cm left thyroid lobe nodule. The inferior porti on of the thyroid gland does not extend to the superior margin of the medial clavicles. No evidence of superior mediastinal lymphadenopathy. Streak artifact from dental amalgam limits evaluation of adjacent structures. Musculoskeletal structures grossly unremarkable with no evidence of acute osseous abnormality. The lung apices are clear. Cerumen/ polyp within the left external auditory canal. Impression: No evidence of significant abnormality involving the cervical soft tissues . Enlarged heterogeneous thyroid gland with right thyroid lobe calcification. 4.2 cm right thyroid lobe with 2 cm left thyroid lobe nodules with indistinct margins.
[2025-02-10] MEDS: POTASSIUM CHLORIDE 40 MEQ, LIDOCAINE 1% (LOCAL ANESTH.) 4 ML in SODIUM CHL 0.9% 250 ML IV ONE (16:15)
--- NOTE | 2025-02-10 19:51 | DVHINCON2 ---
Date Seen: Feb 09, 2025 Referring Physician MD Kvng Reason for Consultation ?SVT History of Present Illness This is a 64-year-old female with a PMH of supraventricular tachycardia, hypertension, caa-aoujtiu-xoysnejzy diabetes mellitus, GERD, and obesity who presented to ED with complaints of palpitations. The patient reports she developed a sudden onset of palpitations associated with right arm numbness, nausea, vomiting, and diaphoresis prompting her to seek further medical attention. Upon arrival to the emergency room she underwent a 12 lead electrocardiogram revealing a supraventricular tachycardia rhythm at 144 bpm. At that time, she was medicated with IVF x1 L bolus and metoprolol tartrate 5 mg IV with a successful transition into a sinus rhythm. The patient reports undergoing a cardiology/EP evaluation at [facility] where she underwent an event monitor for 2-3 weeks and was recommended to undergo a cardiac ablation for which the patient declined in October/2024. Since then, the patient has not followed up with cardiology/EP. Home medications include Coreg 3.125 BID. Patient was admitted to the hospital. I am asked to consult on this patient. Past Medical History Past medical history reviewed. No other significant than mentioned above. Past Surgical History Hysterectomy Family History: Asthma G8 MOTHER Chronic obstructive pulmonary disease G8 MOTHER Diabetes mellitus G8 MOTHER Allergies: Coded Allergies: Coffee Flavoring Agent (non-screeni (Verified Allergy, Severe, convulsions, 02/09/25) Azithromycin (Verified Allergy, Unknown, 01/09/25) Penicillins (Verified Allergy, Unknown, 06/04/23) Tetracyclines & Related (Verified Allergy, Unknown, 01/09/25) Home Meds Active Scripts Ondansetron Odt 4MG Tab (ZOFRAN PO) 4 Mg Tb, 4 MG PO Q8HPRN PRN for 3 Days, #9 TAB ODT TAB-DISSOLVE IN MOUTH, THEN SWALLOW Prov:CHARLIE RANDOLPH DO 06/04/23 Reported Medications Atogepant (Qulipta) 10 Mg Tab, 10 MG PO, TAB 10/27/24 Pantoprazole Sodium Sesquihydr (Protonix) 40 Mg Tab, 40 MG PO DAILY, #30 TAB 10/27/24 Montelukast Sodium (MONTELUKAST SODIUM) 10 Mg Tab, 1 TAB PO DAILY, #30 TAB 5 Refills 10/27/24 Glipizide (Glipizide Er) 5 Mg Tab, 5 MG PO for 30 Days, MG 10/27/24 Atorvastatin Calcium (Lipitor) 40 Mg Tab, 1 TAB PO QPM, #90 TAB 1 Refill 10/27/24 Trospium Chloride (Trospium Chloride) 20 Mg Tab, 20 MG PO, TAB 10/27/24 Current Medications Current Medications Medications (Trade) Dose Ordered Sig/Jayla Route PRN Reason Start Time Stop Time Status Last Admin Montelukast Sodium (Singulair Tablet) 10 mg HS PO 02/09/25 22:00 02/09/25 22:23 Clonidine HCl (Catapres Tablet) 0.1 mg BID PO 02/09/25 22:00 02/10/25 10:38 Metoprolol Succinate (Toprol Xl) 25 mg DAILY PO 02/10/25 10:00 02/10/25 10:39 Flecainide Acetate (Tambocor Tablet) 50 mg Q12HR PO 02/09/25 22:00 02/10/25 10:36 Review of Systems Constitutional: Diaphoresis Ears, Nose, & Throat: No symptom reported Eyes: No symptom reported Neurological: No symptoms reported Pulmonary/Respiratory: No symptom reported Cardiovascular: Palpitations Gastrointestinal: Nausea, vomiting Genitourinary: No symptom reported Musculoskeletal: No symptom reported Skin: No symptom reported Psychiatric: No symptom reported Endocrine: No symptom reported Hemotologic/Lymphatic: No symptom reported Vital Signs Vital Signs Date Time Temp Pulse Resp B/P (MAP) Pulse Ox O2 Delivery O2 Flow Rate FiO2 02/10/25 17:07 97.6 76 20 156/89 (111) 96 97.6 02/10/25 08:00 Room Air* 0 21 Physical Exam GENERAL: Alert and oriented x 3. No acute distress. Obese. EYES: PERRL, EOMI. Anicteric. HENT: Moist mucous membranes. LUNGS: Clear to auscultation bilaterally. CARDIOVASCULAR: Regular rate and rhythm. ABDOMEN: Soft, non-tender and non-distended. EXTREMITIES: No edema. NEUROLOGIC: No focal neurological deficits. SKIN: Warm, dry. Labs/Diagnostic Data Labs Test 02/10/25 12:00 02/10/25 07:12 02/09/25 05:57 02/08/25 08:28 Range/Units POC Glucose 141 H 70-106 mg/dl Sodium Level 141 136-145 mmol/L Potassium Level 3.4 L 3.5-5.1 mmol/L Chloride Level 105 98-107 mmol/L Carbon Dioxide Level 25 20-31 mmol/L Anion Gap 11 5-15 Blood Urea Nitrogen 16 9-23 mg/dL Creatinine 0.89 0.550-1.02 mg/dL Glomerular Filtration Rate Calc 73 >90 mL/min BUN/Creatinine Ratio 18.0 10.0-20.0 Serum Glucose 130 H 74-106 mg/dL Calcium Level 8.9 8.7-10.4 mg/dL Magnesium Level 2.1 1.6-2.6 mg/dL White Blood Count 6.3 4.4-10.8 10^3/uL Red Blood Count 4.65 4.0-5.20 10^6/uL Hemoglobin 12.5 12.2-16.2 g/dL Hematocrit 38.3 36.0-46.0 % Mean Corpuscular Volume 82.2 80.0-100.0 fL Mean Corpuscular Hemoglobin 26.9 L 28.0-32.0 pg Mean Corpuscular Hemoglobin Concent 32.7 32.0-36.0 g/dL Red Cell Distribution Width 13.7 11.8-14.3 % Platelet Count 303 140-450 10^3/uL Mean Platelet Volume 8.5 6.9-10.8 fL Neutrophils (%) (Auto) 69.5 37.0-80.0 % Lymphocytes (%) (Auto) 21.0 10.0-50.0 % Monocytes (%) (Auto) 8.0 0.0-12.0 % Eosinophils (%) (Auto) 0.9 0.0-7.0 % Basophils (%) (Auto) 0.6 0.0-2.0 % Neutrophils # (Auto) 4.4 1.6-8.6 10 ^3/uL Lymphocytes # (Auto) 1.3 0.4-5.4 10 ^3/uL Monocytes # (Auto) 0.5 0-1.3 10 ^3/uL Eosinophils # (Auto) 0.1 0-0.8 10 ^3/uL Basophils # (Auto) 0 0-0.2 10 ^3/uL Nucleated Red Blood Cells 0.0 % Total Bilirubin 0.5 0.2-1.0 mg/dL Aspartate Amino Transferase (AST) 14 13-40 U/L Alanine Aminotransferase (ALT) 22 7-40 U/L Alkaline Phosphatase 84 46-116 U/L Total Protein 7.1 5.7-8.2 g/dL Albumin 4.1 3.2-4.8 g/dL Troponin I High Sensitivity 9 </=34 ng/L Test 02/08/25 05:15 02/08/25 05:06 Range/Units Urine Color Colorless Yellow Urine Clarity Clear Clear Urine pH 7.5 5.0-9.0 Urine Specific [place] 1.006 1.001-1.035 Urine Protein 1+ H Negative Urine Ketones Negative Negative Urine Blood Negative Negative /uL Urine Nitrite Negative Negative Urine Bilirubin Negative Negative Urine Urobilinogen Normal Negative mg/dL Urine Leukocyte Esterase Negative Negative /uL Urine RBC 3 0 - 4 /hpf Urine Microscopic WBC 1 0-5 /HPF Urine Squamous Epithelial Cells Few <5 /hpf Urine Bacteria None seen None Seen /hpf Urine Glucose 2+ H Normal mg/dL Urine Opiates Screen Neg NEGATIVE Urine Fentanyl Screen Neg NEGATIVE Urine Barbiturates Screen Neg NEGATIVE Urine Phencyclidine Screen Neg NEGATIVE Urine Amphetamines Screen Neg NEGATIVE Urine Benzodiazepines Screen Neg NEGATIVE Urine Cocaine Screen Neg NEGATIVE Urine Cannabinoids Screen Neg NEGATIVE Lactic Acid Level 1.5 0.4-2.0 mmol/L B-Type Natriuretic Peptide 68.78 0-100 pg/mL Microbiology Date/Time Source Procedure Growth Status 02/08/25 06:09 Blood Blood Culture - Preliminary NO GROWTH AFTER 48 HOURS OF INCUBATION. Resulted Assessment Supraventricular tachycardia status post chemical cardioversion. Hypertensive urgency. Hypokalemia/hypomagnesemia. Izy-zmhjdcu-kdqlpleka diabetes mellitus. Goiter rule out thyroid disease. Obesity. Plan/Recommendation I agree with your ongoing assessment and care of plan. Patient has been seen by Nichole Vo NP on my behalf. We have discussed the plan with the patient. The patient presented with a supraventricular tachycardia rhythm with successful chemical cardioversion with metoprolol IV. Given recurrent SVT events, initiate low-dose metoprolol XL and low-dose flecainide with parameters to hold for a HR < 60 bpm. Replete electrolytes as necessary, potassium over four and magnesium over two. A recent transthoracic echocardiogram from 10/26/2024 revealed a LVEF of 55%. The patient underwent recent workup with [facility] including an event monitor for 2-3 weeks with recommendations for a cardiac ablation which the patient declined back in October/2024. She was strongly advised to proceed with aforementioned recommendations. Follow-up with [place] within 1-2 weeks post discharge. Additional plan as per the hospital course. Plan discussed with: Patient NYHA Physical activity limitations: NA Date of Service: Feb 09, 2025 Billing Provider: GILBERT AVERY MD Cardiology Common Codes: 25554-[id number] INP/OBS CARE (Mod) Cardiology Consultation Codes: 49586-[id number] CONSULT <45MIN GILBERT AVERY MD Feb 10, 2025 19:50
--- NOTE | 2025-02-10 23:50 | DVHPN2 ---
Progress Note - Dictate Date Seen: Feb 10, 2025 Medical Necessity Reason Pt with a Central, PICC or Fol: No Subjective Patient was seen and evaluated in follow up. Patient is complaining of non- radiating chest pressure with SOB. K 3.4. Thyroid US shows heterogeneous and enlarged thyroid gland. Evaluation for discrete thyroid nodule is limited given heterogeneity of the thyroid gland. CT neck showed no evidence of significant abnormality involving the cervical soft tissues. Enlarged heterogeneous thyroid gland with right thyroid lobe calcification. 4.2 cm right thyroid lobe with 2 cm left thyroid lobe nodules with indistinct margins. MRI abdomen: no acute findings. Small T2 hyperintense lesions with peripheral discontinuous nodular enhancement in the liver likely compatible with cavernous hemangiomas. Telemetry reviewed. vital signs Vital Sign Date Time Temp Pulse Resp B/P (MAP) Pulse Ox O2 Delivery O2 Flow Rate FiO2 02/10/25 17:07 97.6 76 20 156/89 (111) 96 97.6 02/10/25 08:00 Room Air* 0 21 Total Intake and Output 02/09/25 02/09/25 02/10/25 15:00 23:00 07:00 Intake Total 2900 ml 400 ml Balance 2900 ml 400 ml medications Current Medications Medications Dose Ordered Sig/Jayla Route Start Time Stop Time Status Last Admin Dose Admin Nitroglycerin 0.4 mg Q5MINP PRN SL 02/08/25 11:00 Morphine Sulfate 2 mg Q30M PRN IV 02/08/25 11:00 02/10/25 08:15 2 MG Ondansetron HCl 4 mg Q6HPRN PRN IV 02/08/25 11:00 02/10/25 08:26 4 MG Pantoprazole Sodium 40 mg DAILY IV 02/09/25 10:00 02/10/25 10:36 40 MG Hydralazine HCl 10 mg Q6HP PRN IV 02/08/25 19:00 02/10/25 04:40 10 MG Montelukast Sodium 10 mg HS PO 02/09/25 22:00 02/09/25 22:23 10 MG Acetaminophen/ Hydrocodone Bitart 1 tab Q6HPRN PRN PO 02/09/25 12:45 02/10/25 10:38 1 TAB Acetaminophen 650 mg Q6HP PRN PO 02/09/25 12:45 02/09/25 16:39 650 MG Clonidine HCl 0.1 mg BID PO 02/09/25 22:00 02/10/25 10:38 0.1 MG Diagnostic Test (Pha) 1 strip ACHS 02/09/25 17:00 02/10/25 17:02 1 STRIP Insulin Human Regular ACHS SC 02/09/25 17:00 02/10/25 17:03 3 UNITS Dextrose 50 ml UD PRN IV 02/09/25 12:45 Metoprolol Succinate 25 mg DAILY PO 02/10/25 10:00 02/10/25 10:39 25 MG Flecainide Acetate 50 mg Q12HR PO 02/09/25 22:00 02/10/25 10:36 50 MG objective GENERAL: Alert and oriented x 3. No acute distress. Obese. EYES: PERRL, EOMI. Anicteric. HENT: Moist mucous membranes. LUNGS: Clear to auscultation bilaterally. CARDIOVASCULAR: Regular rate and rhythm. ABDOMEN: Soft, non-tender and non-distended. EXTREMITIES: No edema. NEUROLOGIC: No focal neurological deficits. SKIN: Warm, dry. laboratory and microbiology Laboratory Tests 02/10/25 07:12 02/09/25 05:57 Test 02/10/25 07:12 Range/Units Serum Glucose 130 H 74-106 mg/dL Problem List Supraventricular tachycardia status post chemical cardioversion. Hypertensive urgency. Hypokalemia/hypomagnesemia. Hft-ncgbpvl-iazrnluqa diabetes mellitus. Goiter rule out thyroid disease. Obesity. Assessment/Plan Continued all current supportive medical care. Morphine and [place] for pain management. Clonidine. IV Hydralazine for SBP > 160. Metoprolol. Nitro SL. GI prophylactics. Additional plan as per the hospital course. A total of 25 minutes was spent reviewing the patient record, examining the patient, making a diagnostic and therapeutic plan, discussing this plan with medical personnel, following up on diagnostic studies and following the patient for clinical stability excluding any and all procedures. At least 50% of this time was spent in direct, [id number] contact. Plan discussed with: Patient GILBERT AVERY MD Feb 10, 2025 20:35
[2025-02-11 01:00] VITALS: BP 130/64; PULSE 51; RESP 16; TEMP 98; O2SAT 95
[2025-02-11 05:00] VITALS: BP 138/75; PULSE 54; RESP 16; TEMP 97.7; O2SAT 97
[2025-02-11 07:22] LABS: Chloride 106 mmol/L (98-107); Potassium 4.2 mmol/L (3.5-5.1); Sodium 141 mmol/L (136-145)
[2025-02-11 07:23] LABS: Anion Gap 9 (5-15); Calcium 8.7 mg/dL (8.7-10.4); Carbon Dioxide 26 mmol/L (20-31)
[2025-02-11 07:28] LABS: BUN/Creatinine Ratio 17.5 (10.0-20.0); Blood Urea Nitrogen 14 mg/dL (9-23)
[2025-02-11 07:30] LABS: Free T3 2.83 pg/mL (2.3-4.2); Glucose 137 mg/dL (74-106)
[2025-02-11 07:31] LABS: Free T4 (Free Thyroxine) 1.42 ng/dL (0.89-1.76)
[2025-02-11 08:00] VITALS: PULSE 51
[2025-02-11 09:00] VITALS: BP 146/96; PULSE 61; RESP 16; TEMP 97.8; O2SAT 99
[2025-02-11 13:00] VITALS: BP 150/89; PULSE 57; RESP 18; TEMP 98; O2SAT 97
--- NOTE | 2025-02-11 14:00 | DVHDS2 ---
Discharge Summary Date of Admission Feb 08, 2025 at 11:00 Date of Discharge: Feb 11, 2025 Labs/Diagnostic Data: Laboratory Results Test 02/11/25 11:05 02/11/25 06:40 02/10/25 07:12 02/09/25 05:57 POC Glucose 150 mg/dl (70-106) Sodium Level 141 mmol/L (136-145) Potassium Level 4.2 mmol/L (3.5-5.1) Chloride Level 106 mmol/L (98-107) Carbon Dioxide Level 26 mmol/L (20-31) Anion Gap 9 (5-15) Blood Urea Nitrogen 14 mg/dL (9-23) Creatinine 0.80 mg/dL (0.550-1.02) Glomerular Filtration Rate Calc 83 mL/min (>90) BUN/Creatinine Ratio 17.5 (10.0-20.0) Serum Glucose 137 mg/dL (74-106) Calcium Level 8.7 mg/dL (8.7-10.4) Thyroid Stimulating Hormone (TSH) 0.40 uIU/mL (0.55-4.78) Free Thyroxine (T4) Calculated 1.42 ng/dL (0.89-1.76) Free Triiodothyronine (T3) pg/mL 2.83 pg/mL (2.3-4.2) Magnesium Level 2.1 mg/dL (1.6-2.6) White Blood Count 6.3 10^3/uL (4.4-10.8) Red Blood Count 4.65 10^6/uL (4.0-5.20) Hemoglobin 12.5 g/dL (12.2-16.2) Hematocrit 38.3 % (36.0-46.0) Mean Corpuscular Volume 82.2 fL (80.0-100.0) Mean Corpuscular Hemoglobin 26.9 pg (28.0-32.0) Mean Corpuscular Hemoglobin Concent 32.7 g/dL (32.0-36.0) Red Cell Distribution Width 13.7 % (11.8-14.3) Platelet Count 303 10^3/uL (140-450) Mean Platelet Volume 8.5 fL (6.9-10.8) Neutrophils (%) (Auto) 69.5 % (37.0-80.0) Lymphocytes (%) (Auto) 21.0 % (10.0-50.0) Monocytes (%) (Auto) 8.0 % (0.0-12.0) Eosinophils (%) (Auto) 0.9 % (0.0-7.0) Basophils (%) (Auto) 0.6 % (0.0-2.0) Neutrophils # (Auto) 4.4 10 ^3/uL (1.6-8.6) Lymphocytes # (Auto) 1.3 10 ^3/uL (0.4-5.4) Monocytes # (Auto) 0.5 10 ^3/uL (0-1.3) Eosinophils # (Auto) 0.1 10 ^3/uL (0-0.8) Basophils # (Auto) 0 10 ^3/uL (0-0.2) Nucleated Red Blood Cells 0.0 % Total Bilirubin 0.5 mg/dL (0.2-1.0) Aspartate Amino Transferase (AST) 14 U/L (13-40) Alanine Aminotransferase (ALT) 22 U/L (7-40) Alkaline Phosphatase 84 U/L (46-116) Total Protein 7.1 g/dL (5.7-8.2) Albumin 4.1 g/dL (3.2-4.8) Test 02/08/25 08:28 02/08/25 05:15 02/08/25 05:06 Troponin I High Sensitivity 9 ng/L (</=34) Urine Color Colorless (Yellow) Urine Clarity Clear (Clear) Urine pH 7.5 (5.0-9.0) Urine Specific [place] 1.006 (1.001-1.035) Urine Protein 1+ (Negative) Urine Ketones Negative (Negative) Urine Blood Negative /uL (Negative) Urine Nitrite Negative (Negative) Urine Bilirubin Negative (Negative) Urine Urobilinogen Normal mg/dL (Negative) Urine Leukocyte Esterase Negative /uL (Negative) Urine RBC 3 /hpf (0 - 4) Urine Microscopic WBC 1 /HPF (0-5) Urine Squamous Epithelial Cells Few /hpf (<5) Urine Bacteria None seen /hpf (None Seen) Urine Glucose 2+ mg/dL (Normal) Urine Opiates Screen Neg (NEGATIVE) Urine Fentanyl Screen Neg (NEGATIVE) Urine Barbiturates Screen Neg (NEGATIVE) Urine Phencyclidine Screen Neg (NEGATIVE) Urine Amphetamines Screen Neg (NEGATIVE) Urine Benzodiazepines Screen Neg (NEGATIVE) Urine Cocaine Screen Neg (NEGATIVE) Urine Cannabinoids Screen Neg (NEGATIVE) Lactic Acid Level 1.5 mmol/L (0.4-2.0) B-Type Natriuretic Peptide 68.78 pg/mL (0-100) Other Laboratory Tests 02/11/25 06:40 02/09/25 05:57 Brief Hx & Hospital Course: see dictated note Condition at Discharge: Fair Final Diagnosis/Problems List htn Discharge Disposition: Home Discharge Instruct/Medications Diet: Cardiac 2g Na,low cholest Activity: No Restrictions, As Tolerated Follow Up/Referral: fu with [place] Medications: resume home meds script to pharmacy Scheduled Atorvastatin Calcium (Lipitor), 1 TAB PO QPM, (Reported) Montelukast Sodium (Montelukast Sodium), 1 TAB PO DAILY, (Reported) Pantoprazole Sodium Sesquihydr (Protonix), 40 MG PO DAILY, (Reported) Scheduled PRN Ondansetron Odt 4MG Tab (Zofran Po), 4 MG PO Q8HPRN PRN Miscellaneous Medications Atogepant (Qulipta), 10 MG PO, (Reported) Glipizide (Glipizide Er), 5 MG PO, (Reported) Trospium Chloride (Trospium Chloride), 20 MG PO, (Reported) Discharge Statement: "Patient was advised to return to the ER or call 911 if any headaches, dizziness, shortness of breath, chest pain, abdominal pain, bleeding, fevers, or worsening of medical condition. Patient was counseled about treatment plan, medications, possible side effects, patientverbalized understanding. All questions were answered to the best of my ability. This discharge took greater then 30 minutes in planning, reviewing documentation, counseling the patient, and discussing with other team members." ASSESSMENT ASSESSMENT Assessment htn Date of Service: Feb 11, 2025 Billing Provider: BONI CHEN MD Common Visit Codes: [id number] DISCH DAY >30min BONI CHEN MD Feb 11, 2025 13:59
[2025-02-11] MEDS ORDERED: FLEC1TAB PO (14:02)
[2025-02-11] MEDS ORDERED: PANT40TA2 PO (14:02)
[2025-02-11] MEDS ORDERED: METO25TA36 PO (14:02)
[2025-02-11] MEDS ORDERED: HYDR1TAB97 PO (14:02)
[2025-02-11] MEDS ORDERED: ZOFR4T PO (14:13)
--- NOTE | 2025-02-11 14:25 | DVHDS ---
DATE OF DISCHARGE: 02/11/2025 HISTORY OF PRESENT ILLNESS: The patient is a 64-year-old lady who was admitted with history of chest pain, palpitations, and vomiting. She has a history of hypertension, diabetes, SVT, asthma, GERD. HOSPITAL COURSE: The patient had elevated blood pressure of 180/127. The patient also had SVT that was converted chemically with IV metoprolol. The patient was seen in Cardiology consult by Dr. Acevedo. The patient had a recent echocardiogram done that showed ejection fraction of 55%. Her thyroid levels were within normal limits. The patient had a CT of abdomen and pelvis that showed colonic diverticula with nodular morphology of the liver. An MRI of the abdomen was done with and without contrast that showed small T2 hyperintense lesions suggestive of possible cavernous hemangiomas. No acute findings were seen. The patient had a neck CT that showed evidence of enlarged heterogeneous thyroid gland with a right lobe calcification. I gave her a copy of the CT. The patient also had a gallbladder ultrasound that showed no significant abnormality. The patient will now be discharged home to resume her home medications as well as to be on flecainide 50 mg p.o. b.i.d., Toprol XL 25 mg daily, Zofran p.r.n. for nausea, [place] p.r.n. for pain, and Protonix 40 mg daily. She will follow up with her primary in [place]. I offered the patient to transfer to [facility], but she at this time wishes to be discharged and will follow up as an outpatient. FINAL DIAGNOSES: Therefore: * Hypertensive emergency. * SVT. * Abdominal pain with GERD. * Liver lesions, likely cavernous hemangiomas. * Diabetes mellitus. * Goiter with thyroid nodules. * Obesity. Time spent in discharge planning and review of plan with the patient and nursing was 41 minutes. MD DC Perez/NED TID: [id number] RECEIPT: [id number]
[2025-02-11 15:13] VITALS: BP 134/71; PULSE 52
--- NOTE | 2025-02-11 22:06 | DVHPN2 ---
Progress Note - Dictate Date Seen: Feb 11, 2025 Medical Necessity Reason Pt with a Central, PICC or Fol: No Subjective Patient was seen and evaluated in follow up. Patient has no new complaints at this time. Patient denies any cardiac symptoms. Patient is cardiac stable for discharge. Telemetry reviewed. vital signs Vital Sign Date Time Temp Pulse Resp B/P (MAP) Pulse Ox O2 Delivery O2 Flow Rate FiO2 02/11/25 09:04 52 134/71 02/11/25 09:00 97.8 16 99 97.8 02/11/25 08:00 Room Air* 0 21 Total Intake and Output 02/10/25 02/10/25 02/11/25 15:00 23:00 07:00 Intake Total 750 ml 300 ml Output Total 7 ml Balance 743 ml 300 ml medications Current Medications Medications Dose Ordered Sig/Jayla Route Start Time Stop Time Status Last Admin Dose Admin Nitroglycerin 0.4 mg Q5MINP PRN SL 02/08/25 11:00 Morphine Sulfate 2 mg Q30M PRN IV 02/08/25 11:00 02/10/25 08:15 2 MG Ondansetron HCl 4 mg Q6HPRN PRN IV 02/08/25 11:00 02/11/25 09:05 4 MG Pantoprazole Sodium 40 mg DAILY IV 02/09/25 10:00 02/11/25 09:04 40 MG Hydralazine HCl 10 mg Q6HP PRN IV 02/08/25 19:00 02/10/25 04:40 10 MG Montelukast Sodium 10 mg HS PO 02/09/25 22:00 02/10/25 21:52 10 MG Acetaminophen/ Hydrocodone Bitart 1 tab Q6HPRN PRN PO 02/09/25 12:45 02/10/25 10:38 1 TAB Acetaminophen 650 mg Q6HP PRN PO 02/09/25 12:45 02/11/25 09:05 650 MG Clonidine HCl 0.1 mg BID PO 02/09/25 22:00 02/10/25 21:53 0.1 MG Diagnostic Test (Pha) 1 strip ACHS 02/09/25 17:00 02/11/25 11:16 1 STRIP Insulin Human Regular ACHS SC 02/09/25 17:00 02/11/25 11:17 2 UNITS Dextrose 50 ml UD PRN IV 02/09/25 12:45 Metoprolol Succinate 25 mg DAILY PO 02/10/25 10:00 02/10/25 10:39 25 MG Flecainide Acetate 50 mg Q12HR PO 02/09/25 22:00 02/10/25 21:53 50 MG objective GENERAL: Alert and oriented x 3. No acute distress. Obese. EYES: PERRL, EOMI. Anicteric. HENT: Moist mucous membranes. LUNGS: Clear to auscultation bilaterally. CARDIOVASCULAR: Regular rate and rhythm. ABDOMEN: Soft, non-tender and non-distended. EXTREMITIES: No edema. NEUROLOGIC: No focal neurological deficits. SKIN: Warm, dry. laboratory and microbiology Laboratory Tests 02/11/25 06:40 02/09/25 05:57 Test 02/11/25 06:40 Range/Units Serum Glucose 137 H 74-106 mg/dL Problem List Supraventricular tachycardia status post chemical cardioversion. Hypertensive urgency. Hypokalemia/hypomagnesemia. Aba-dlarmqs-khrajpecd diabetes mellitus. Goiter rule out thyroid disease. Obesity. Assessment/Plan Continued all current supportive medical care. Tylenol for pain management. Nitro SL. GI prophylactics. Additional plan as per the hospital course. A total of 25 minutes was spent reviewing the patient record, examining the patient, making a diagnostic and therapeutic plan, discussing this plan with medical personnel, following up on diagnostic studies and following the patient for clinical stability excluding any and all procedures. At least 50% of this time was spent in direct, [id number] contact. Plan discussed with: Patient GILBERT AVERY MD Feb 11, 2025 12:13
== END 2025-02-11 16:00 | disposition home or self-care (01) | DRG 392 ==
LOC: ER 04:23 → OVERFLOW 11:00 → TELE-WESTW 21:50
PROVIDERS: ADMIT Internal Medicine; ATTEND Internal Medicine
DX: K21.9 Gastro-esophageal reflux disease without esophagitis (principal); I16.1 Hypertensive emergency; I47.10 Supraventricular tachycardia, unspecified; D18.03 Hemangioma of intra-abdominal structures; E66.9 Obesity, unspecified; E11.65 Type 2 diabetes mellitus with hyperglycemia; E83.42 Hypomagnesemia; E87.6 Hypokalemia; K57.30 Diverticulosis of large intestine without perforation or abscess without bleeding; J45.909 Unspecified asthma, uncomplicated; E04.2 Nontoxic multinodular goiter; K52.9 Noninfective gastroenteritis and colitis, unspecified; Z88.0 Allergy status to penicillin; Z88.1 Allergy status to other antibiotic agents; Z90.710 Acquired absence of both cervix and uterus; Z79.899 Other long term (current) drug therapy; Z83.3 Family history of diabetes mellitus; Z82.5 Family history of asthma and other chronic lower respiratory diseases; Z79.84 Long term (current) use of oral hypoglycemic drugs; Z68.34 Body mass index [BMI] 34.0-34.9, adult
CPT/HCPCS: 36415; 70490; 71045; 74176; 74183; 76536; 76705; 80048; 80053; 80307; 81001; 82962; 83605; 83735; 83880; 84439; 84443; 84481; 84484; 85025; 87040; 93005; 99291; 99292; G0378; J1815; J2003; J2405; J2470; J3480